=== PATIENT | male | born 1950 | race Caucasian/White ===

== ENCOUNTER 2018-10-27 11:18 | Outpatient (CLI) | payer OTHER, SELFPAY ==
[2018-10-27 13:25] LABS: Anion Gap 8.6 mmol/L (3-11); BUN 21 mg/dL (7-18); CO2 28.4 mmol/L (21.0-32.0); CREATININE 1.15 mg/dL (0.70-1.30); Chloride 103 mmol/L (98-107); Cholesterol 185 mg/dL (50-200); Glucose 93 mg/dL (70-100); HDL Cholesterol 63 mg/dL (40-60); LDL CHOLESTEROL 97 mg/dL (<100); Potassium 4.7 mmol/L (3.5-5.1); Sodium 140 mmol/L (136-145); Triglyceride 146 mg/dL (30-150)
[2018-10-27 13:59] LABS: Uric Acid 8.2 mg/dL (3.5-7.2)
[2018-10-30 08:50] LABS: PSA, Screening 3.3 ng/ml (0-4.5)
[2018-10-30 11:23] LABS: IgA 198 mg/dL (85-499); Interpretation SEE COMMENTS; Tissue Transglutaminase IgA <1.2 U/mL (<4.0)
== END 2018-10-27 11:38 ==
PROVIDERS: PCP Emergency Medicine; Visit Provider Emergency Medicine
DX: I10 Essential (primary) hypertension (principal); Z12.5 Encounter for screening for malignant neoplasm of prostate; K58.0 Irritable bowel syndrome with diarrhea; M10.9 Gout, unspecified; E78.5 Hyperlipidemia, unspecified
CPT/HCPCS: 80048; 80061; 82784; 83516; 83721; 84153; 84550

== ENCOUNTER 2019-05-14 06:59 | Emergency (ER) | payer OTHER, SELFPAY ==
[2019-05-14 07:05] VITALS: BP 155/84; PULSE 67; RESP 14; TEMP 36.4; O2SAT 99
--- NOTE | 2019-05-14 07:05 | DI.RAD_ITS ---
SYMPTOMS/DIAGNOSIS: PAIN, S/P FALL, PAIN OVER LATERAL MALLEOLUS LEFT ANKLE: Three views. There are no priors for comparison. No acute bone, joint or soft tissue abnormality is identified.
--- NOTE | 2019-05-14 07:07 | W.ED.GENAD ---
Discharge Plan Disposition Patient Disposition: HOME Condition: Stable Discharge Details Chief Complaint: Orthopedic Clinical Impression: Left ankle sprain Primary Care Provider: Manolo Eid ED Provider: Alex Paris Home Meds and New Rx's Prescriptions: No Action prednisone 20 mg tablet 40 mg PO DAILY Qty: 8 RF: 3 ibuprofen 800 mg tablet 800 mg PO BID RF: 0 multivitamin 1 EACH capsule 1 tab PO DAILY RF: 0 acetaminophen [Tylenol] 325 MG tablet 325 mg PO Q4H PRN RF: 0 lisinopril 20 MG tablet 20 mg PO DAILY Qty: 90 RF: 3 colchicine 0.6 mg capsule 0.6 mg PO bid prn Qty: 20 RF: 1 bupropion HCl 150 mg tablet extended release 24 hr 150 mg PO QAM Qty: 60 RF: 6 ranitidine HCl [Zantac] 150 mg tablet 150 mg PO BID Qty: 180 RF: 8 fluoxetine 40 mg capsule 40 mg PO DAILY Qty: 90 RF: 3 rosuvastatin [Crestor] 20 mg tablet 20 mg PO DAILY Qty: 90 RF: 3 metoprolol succinate 100 mg tablet extended release 24 hr 100 mg PO DAILY Qty: 90 RF: 3 dextroamphetamine-amphetamine 10 mg tablet 10 mg PO BID MDD 20 mg Qty: 60 RF: 0 Discharge Instructions Instructions: Ankle Sprain (ED) Additional Instructions: if still in pain in one week follow up with your primary care provider for reassessment Medical Decision Making Pt states yesterday he rolled his ankle while walking, did not hit his head or have loc and denies any preceding symptoms to suggest presyncope. Has no pain in the head, c spine, chest or abdomen. He only has pain over the lateral malleolus and has pain with weight bearing and rom . Will xray to eval for fx. Neurovascular exam is intact xray negative on my read, will d/c home and advised if not better in a week to see pcp Differential Diagnosis ankle sprain, fx Imaging Data Radiologic Study: Attestation: I personally reviewed and interpreted this imaging study as follows: Imaging: X-Ray My impression: no acute findings HPI General Mode of arrival: ambulatory. Date/Time Provider Initiated Documentation: 05/14/19 07:00. Limitations to Documentation: no limitations. Information obtained by: patient. History of Present Illness 68 year old M presents to the emergency department with the chief complaint of left ankle pain, described as moderate, Quality is described as aching, and is localized to the left and lower extremity. Patient reports no radiation. Patient started experiencing this day(s) (1) and it has been constant. No relieving factors improve symptom(s), No exacerbating factors reported . Patient notes no other symptoms.. Related Data Home Medications Medication Instructions Recorded Confirmed multivitamin 1 tab PO DAILY 02/16/13 04/06/19 acetaminophen [Tylenol] 325 mg PO Q4H PRN tab-cap 03/01/13 04/06/19 lisinopril 20 mg PO DAILY #90 tab-cap 05/02/18 04/06/19 colchicine 0.6 mg capsule 0.6 mg PO bid prn #20 cap 07/21/18 04/06/19 bupropion HCl 150 mg 24 hr tablet, 150 mg PO QAM #60 tab 11/07/18 04/06/19 extended release prednisone 20 mg tablet 40 mg PO DAILY #8 tab 12/15/18 04/06/19 ranitidine HCl 150 mg tablet 150 mg PO BID #180 tab 01/17/19 04/06/19 ibuprofen 800 mg tablet 800 mg PO BID tab 04/06/19 04/06/19 fluoxetine 40 mg capsule 40 mg PO DAILY #90 tab-cap 04/27/19 rosuvastatin 20 mg tablet 20 mg PO DAILY #90 tab-cap 04/27/19 metoprolol succinate 100 mg 100 mg PO DAILY #90 tab 05/01/19 tablet,extended release 24 hr dextroamphetamine-amphetamine 10 10 mg PO BID #60 tab MDD 20 mg 05/02/19 mg tablet Previous Rx's Medication Instructions Recorded lisinopril 20 mg PO DAILY #90 tab-cap 05/02/18 colchicine 0.6 mg capsule 0.6 mg PO bid prn #20 cap 07/21/18 bupropion HCl 150 mg 24 hr tablet, 150 mg PO QAM #60 tab 11/07/18 extended release prednisone 20 mg tablet 40 mg PO DAILY #8 tab 12/15/18 ranitidine HCl 150 mg tablet 150 mg PO BID #180 tab 01/17/19 fluoxetine 40 mg capsule 40 mg PO DAILY #90 tab-cap 04/27/19 rosuvastatin 20 mg tablet 20 mg PO DAILY #90 tab-cap 04/27/19 metoprolol succinate 100 mg 100 mg PO DAILY #90 tab 05/01/19 tablet,extended release 24 hr dextroamphetamine-amphetamine 10 10 mg PO BID #60 tab MDD 20 mg 05/02/19 mg tablet Allergies Allergy/AdvReac Type Severity Reaction Status Date / Time [id number] Reductase AdvReac Intermediate diarrhea & Verified 04/06/19 09:09 Inhibitor leg cramps General Stated Complaint: Orthopedic SUMI: 4 Review of Systems Review of Systems All systems reviewed & are unremarkable except as noted in HPI and below Constitutional Denies chills, Denies fever(s) and Denies weakness Cardiovascular Denies chest pain and Denies dyspnea Respiratory Denies dyspnea Gastrointestinal Denies abdominal pain and Denies vomiting Neurologic Denies weakness FOR[facility], [facility] Medical History (Updated 04/06/19 @ 09:43 by Manolo Eid DO) Depression Essential hypertension Gout History of colon polyps Hyperlipidemia Surgical History (Updated 04/03/19 @ 08:57 by Vince Green) cardiac cath (~2004) Colonoscopy - IV Sedation (~2006) Colonoscopy - IV Sedation (09/03/16) Replacement of total knee joint Family History Mother Essential hypertension Heart disease Hyperlipidemia Father Substance abuse Diabetes Essential hypertension Heart disease Hyperlipidemia Prostate cancer Depression Sister Essential hypertension Sister Substance abuse Essential hypertension Brother Substance abuse Essential hypertension Hyperlipidemia Asthma Brain cancer Maternal Grandfather Essential hypertension Heart disease Neoplasm Paternal Grandfather Essential hypertension Heart disease Stroke Maternal Grandmother Essential hypertension Heart disease Stroke Paternal Grandmother Diabetes Essential hypertension Heart disease Hyperlipidemia Stroke Son High cholesterol Daughter Depression Substance abuse Social History (Updated 10/30/18 @ 11:46 by Alejandra Coon) Smoking/Tobacco Use Status: Former Tobacco Use Second Hand Exposure: Yes Alcohol Intake: former Drug use: Never Substance use type: does not use, former substance user, marijuana and hallucinogens Caregiver/Support person: No Household members: spouse Housing: house Pets and animals: Yes Pets and animals: cat(s) and dog(s) Sexually active: Yes Do you think of yourself as: straight/heterosexual Current gender identity: male What is your relationship status?: How often do you talk on the phone with friends or family?: twice per week How often do you get together with friends or relatives?: twice per week How often do you attend druze or lutheran services?: 4 or more times per year Do you belong to any clubs or organized social groups?: no Panel score (0-1 are the most socially isolated patients): 3 Duration: 15-30 minutes/day Frequency: 1-2 times per week Kaci/Sabianist: Sabianism Do you feel safe at home: Yes Do you feel safe in your relationship?: Yes Exam Const General: no acute distress Orientation: alert HENMT Head: normal to inspection Ears: external ears normal General nose exam: external nose normal Mouth: moist mucous membranes Eyes General: appearance normal, both eyes and all related structures Neck Neck: normal visual inspection Resp Effort & Inspection: normal respiratory effort and able to speak in complete sentences Cardio Rate: regular rate Skin General skin exam: no rashes or lesions noted Neuro General: alert and oriented x3 Extrem General: normal to inspection Psych Mental Status: mental status grossly normal Course Vital Signs Temperature 36.4 C L 05/14/19 07:05 Pulse 67 05/14/19 07:05 Respiratory Rate 14 05/14/19 07:05 Blood Pressure 155/84 H 05/14/19 07:05 Pulse Oximetry 99 05/14/19 07:05 Temperature 36.4 C L 05/14/19 07:05 Temperature Source Temporal Artery Scan 05/14/19 07:05 Pulse 67 05/14/19 07:05 Respiratory Rate 14 05/14/19 07:05 Blood Pressure 155/84 H 05/14/19 07:05 Blood Pressure Position Sitting 05/14/19 07:05 Pulse Oximetry 99 05/14/19 07:05 Oxygen Delivery Method Room Air 05/14/19 07:05 Oxygen Flow Rate 0 05/14/19 07:05 Pain Level 8 05/14/19 07:05
[2019-05-14] MEDS: Acetaminophen 500 MG TAB 1000 MG PO (07:11)
--- NOTE | 2019-05-14 07:26 | DI.VRAD_ITS ---
EXAM: XR Left Ankle EXAM DATE/TIME: 05/14/2019 7:06 AM CLINICAL HISTORY: 68 years old, male; Injury or trauma; Fall; Initial encounter; Sprain or strain; Ankle; Left TECHNIQUE: Imaging protocol: XR Left ankle. Views: 3 or more views. COMPARISON: No relevant prior studies available. FINDINGS: Bones/joints: Joint spaces and mortise relationships are maintained. No appreciable ankle joint effusion. No acute fracture or dislocation. Soft tissues: No radiopaque foreign body. IMPRESSION: No acute fracture or dislocation. Dictated and Authenticated by: Lanre Martinez MD. Ordering:TRAN Johnson MD
== END 2019-05-14 07:46 | disposition home or self-care (01) ==
PROVIDERS: Emergency Provider Emergency Medicine; PCP Emergency Medicine
DX: S93.401A Sprain of unspecified ligament of right ankle, initial encounter (principal); X50.9XXA Other and unspecified overexertion or strenuous movements or postures, initial encounter; I10 Essential (primary) hypertension
CPT/HCPCS: 99283; 73610; E0114

== ENCOUNTER 2019-07-18 08:56 | Outpatient (CLI) | payer OTHER, SELFPAY ==
[2019-07-19 11:20] LABS: PSA, Diagnostic 4.7 ng/ml (0-4.5)
== END 2019-07-18 09:16 ==
PROVIDERS: PCP Emergency Medicine; Visit Provider Emergency Medicine
DX: C61 Malignant neoplasm of prostate (principal); N13.8 Other obstructive and reflux uropathy; N40.1 Benign prostatic hyperplasia with lower urinary tract symptoms
CPT/HCPCS: 36415; 84153

== ENCOUNTER → 2019-08-08 08:18 | Outpatient (BNVA) | payer OTHER, SELFPAY | PROVIDERS: PCP Emergency Medicine; Referring Provider Emergency Medicine; Visit Provider Nurse Practitioner Gerontology | DX: N40.1 Benign prostatic hyperplasia with lower urinary tract symptoms (principal); Z80.42 Family history of malignant neoplasm of prostate; R97.20 Elevated prostate specific antigen [PSA]; I10 Essential (primary) hypertension | CPT/HCPCS: 99203; 99214 ==

== ENCOUNTER 2019-11-14 00:55 | Outpatient (CLI) | payer OTHER, SELFPAY ==
[2019-11-14 10:50] LABS: ALT 41 U/L (16-63); AST 20 U/L (15-37); Alkaline Phosphatase 112 U/L (46-116); Bilirubin, Direct 0.11 mg/dL (0.00-0.20); Bilirubin, Total 0.5 mg/dL (0.2-1.0); Total Protein 6.5 g/dL (6.4-8.2); Uric Acid 3.8 mg/dL (3.5-7.2)
== END 2019-11-14 01:15 ==
PROVIDERS: PCP Emergency Medicine; Visit Provider Emergency Medicine
DX: M10.9 Gout, unspecified (principal)
CPT/HCPCS: 36415; 80076; 84550

== ENCOUNTER 2020-02-16 11:48 | Emergency (ER) | payer OTHER, SELFPAY ==
[2020-02-16] VITALS (12 sets, daily range): BP systolic 114–139; BP diastolic 73–90; PULSE 62–74; RESP 16; TEMP 36.3–36.8; O2SAT 94–98
--- NOTE | 2020-02-16 12:00 | DI.RAD_ITS ---
EXAM: XR TIB/FIB RT. RT ANKLE AND POST REDUCTION RT ANKLE CLINICAL HISTORY: s/p fall, r/o acute fracture COMPARISON: XR ANKLE RT COMPLETE from 02/16/2020 XR TIB/FIB RT from 02/16/2020 XR ANKLE RT COMPLETE from 02/16/2020 FINDINGS: Two views of the leg were obtained and show knee joint replacement in position. There is a mildly co mminuted fracture of the proximal fibular diaphyseal metaphyseal junction. Three initial views of the right ankle show fracture dislocation with disruption of the tibiotalar dasia int, probable posterior and medial malleolar fractures, and possible talar injuries laterally and ant eriorly with small fragments of ossific or calcific material noted at these sites. Follow-up radiographs show reduction of the fracture dislocation with the ankle in a splint. Additio nal evaluation with CT may be considered to further characterize the tibiotalar injury.
--- NOTE | 2020-02-16 12:00 | DI.CT_ITS ---
EXAM: CT CHEST/ABD/PEL WO CLINICAL HISTORY: s/p fall, r/o R rib/R hip fracture COMPARISON: No exams were available for comparison FINDINGS: CT examination of the chest, abdomen and pelvis was performed without contrast administration. No fr acture of the bony thorax identified. Tracheobronchial tree appears intact. Lungs are predominantly clear with an incidental well-circumscribed 5 millimeter right lower lobe intrapulmonary nodule, 12 month follow-up chest CT suggested. Vascular structures cannot be evaluated due to lack of contrast material, no gross mediastinal hematoma, mass, or adenopathy. No pleural effusion or pneumothorax. Note is made of hepatic steatosis. Otherwise unremarkable appearance of liver, spleen, and pancreas by noncontrast criteria. Adrenals and kidneys appear normal by noncontrast criteria. No urinary tra ct obstruction or calcification. Abdominal aorta is of normal diameter. No intra-abdominal hematoma or free air. No focal evidence of bowel injury or obstruction. Normal appearance of appendix. No evidence of diverticulitis. No significant abdominal wall hernia or hematoma. No fracture seen involving the lumbosacral spine, pelvis, or hips. IMPRESSION: No evidence of acute injury. Examination limited by lack of contrast material. Incidental [address] right lower lobe intrapulmonary nodule, 12 month follow-up chest CT suggested.
--- NOTE | 2020-02-16 12:00 | DI.RAD_ITS ---
EXAM: XR SHOULDER RT COMPLETE 2+V CLINICAL HISTORY: s/p fall, r/o acute fracture TECHNIQUE: COMPARISON: No exams were available for comparison FINDINGS: Five views were obtained. Note is made of calcification the soft tissues medial to the scapula which was seen to lie at the base of the coracoid on recent CT.. No evidence of acute fracture or disloca tion. IMPRESSION:
--- NOTE | 2020-02-16 12:07 | W.ED.GENAD ---
Discharge Plan Disposition Patient Disposition: HOME Condition: Stable Discharge Details Chief Complaint: Trauma Clinical Impression: Fracture dislocation of ankle joint, Abrasion of ankle, right, Fracture of proximal end of fibula, Contusion of right shoulder, Abrasion of hip, right, Fall from roof Primary Care Provider: Manolo Eid ED Provider: Diana Alonso Home Meds and New Rx's Prescriptions: New oxycodone 5 mg tablet 5 mg PO Q6H PRN (Reason: pain) Qty: 14 RF: 0 Continued tamsulosin [Flomax] 0.4 mg capsule 0.4 mg PO QHS Qty: 90 RF: 3 ibuprofen 800 mg tablet 800 mg PO BID RF: 0 famotidine 20 mg tablet 20 mg PO BID Qty: 180 RF: 2 famotidine 20 mg tablet 20 mg PO BID Qty: 180 RF: 2 multivitamin 1 EACH capsule 1 tab PO DAILY RF: 0 acetaminophen [Tylenol] 325 MG tablet 325 mg PO Q4H PRN RF: 0 ranitidine HCl [Zantac] 150 mg tablet 150 mg PO BID Qty: 180 RF: 8 fluoxetine 40 mg capsule 40 mg PO DAILY Qty: 90 RF: 3 rosuvastatin [Crestor] 20 mg tablet 20 mg PO DAILY Qty: 90 RF: 3 metoprolol succinate 100 mg tablet extended release 24 hr 100 mg PO DAILY Qty: 90 RF: 3 colchicine 0.6 mg capsule 0.6 mg PO bid prn Qty: 60 RF: 6 prednisone 20 mg tablet 40 mg PO DAILY Qty: 10 RF: 0 bupropion HCl 150 mg tablet extended release 24 hr 150 mg PO QAM Qty: 60 RF: 6 allopurinol 100 mg tablet 300 mg PO DAILY Qty: 270 RF: 3 dextroamphetamine-amphetamine 10 mg tablet 10 mg PO BID MDD 20 mg Qty: 60 RF: 0 valacyclovir 1 gram tablet 1,000 mg PO Q8H Qty: 21 RF: 0 lisinopril 10 mg tablet 10 mg PO DAILY Qty: 30 RF: 0 Discharge Instructions Instructions: Leg Fracture (ED), Contusion in Adults (ED), Abrasion (ED) Additional Instructions: Alternate tylenol and motrin as needed and directed for pain. Take the oxycodone as needed and directed for pain not relieved with Tylenol or Motrin. Take the antibiotics as directed today. Be sure to rest, ice, elevate your right leg as much as possible. Do not bear any weight on your right leg. Use your crutches for ambulation. Do not eat anything after midnight on Tuesday. Call the orthopedics office on Tuesday at 9 AM to discuss plans for surgery of your ankle. Return to the emergency department if you develop any worsening or new concerning symptoms. Referrals: Kameron Garcia MD [ [facility] STAFF PHYSICIAN] - Nael Durham MD [ [facility] STAFF PHYSICIAN] - Discharge Data Discharge Date/Time-TO BE ENTERED AT DEPARTURE: 02/16/20 14:02 Discharge Physician: Diana Alonso Medical Decision Making 1140 -- 69-year-old male who presents with right ankle, shoulder, hip pain after fall down 10 feet off of roof onto wooden deck prior to arrival. There is right ankle medial malleolus bony prominence and superficial abrasion consistent with mild deformity. He is neurovascular intact. He also has superficial abrasions noted to right anterior lateral chest as well as right lateral hip. He has pain with range of motion in his right shoulder. No report or evidence of head injury. No midline spinal tenderness. Lungs clear and abdomen soft and nontender. We will give a dose of morphine and refer for right shoulder, right tib-fib and right ankle x-rays as well as CT chest abdomen and pelvis without contrast. 1300 --imaging reviewed. There is a fracture dislocation of the tibiotalar joint with medial anterior dislocation of the right tibia as well as proximal fibular fracture concerning for syndesmotic injury. Right shoulder xray negative. CT chest and abdomen negative for acute findings. There was noted a 5mm R LL nodule which pt was notified about and advised to f/u with pcp if needed. Case discussed with Dr. Garcia who stated that patient will need internal fixation of ankle. Reduction was performed at bedside after 200 mcg of fentanyl. Patient tolerated procedure well and splint placed. Neurovascularly intact pre-and post reduction. X-ray confirmed successful reduction. Patient was advised to call orthopedics office on Tuesday at 9 AM and with plan for nothing by mouth after midnight on Tuesday for tentative plans for operative fixation on Tuesday. Patient was advised on RICE and no weight bearing. He has crutches. Usual and customary return precautions given prior to discharge. Medical Records Medical records reviewed: Yes I reviewed the patient's medical records. Imaging Data Radiologic Study: Radiologist's impression: CT Chest Without Contrast Exam date and time: 02/16/2020 12:04 PM Age: 69 years old Clinical indication: Injury or trauma; Fall; Initial encounter; Generalized; Blunt trauma (contusions or hematomas) TECHNIQUE: Imaging protocol: Computed tomography of the chest without contrast. COMPARISON: No relevant prior studies available. FINDINGS: Lungs: 5 mm right lower lobe solid pulmonary nodule (series 4, image 386). No consolidation. No masses. Scattered atelectasis and/or scarring of the lung bases. Pleural space: No pneumothorax. No pleural effusion. Heart: There is mild atherosclerotic calcification of the coronary arteries. No cardiomegaly. No pericardial effusion. Aorta: Unremarkable. No aortic aneurysm. Lymph nodes: Unremarkable. No enlarged lymph nodes. Bones/joints: Unremarkable. No acute fracture. Soft tissues: Unremarkable. IMPRESSION: 1. No acute findings. 2. 5 mm right lower lobe solid pulmonary nodule. For patients at low risk (minimal or absent history of smoking and of other known risk factors), no routine follow-up is indicated. For patients at high risk (history of smoking or of other known risk factors), consider optional CT at 12 months. (Sami, et al., Fleischner Society, 2017). CT Abdomen And Pelvis Without Contrast Exam date and time: 02/16/2020 12:04 PM Age: 69 years old Clinical indication: Injury or trauma; Fall; Initial encounter; Generalized; Blunt trauma (contusions or hematomas) TECHNIQUE: Imaging protocol: Computed tomography of the abdomen and pelvis without contrast. COMPARISON: No relevant prior studies available. FINDINGS: Liver: There is a diffuse decrease in hepatic parenchymal density, consistent with fatty infiltration. There is no evidence of a focal mass. Gallbladder and bile ducts: Unremarkable. No calcified stones. No ductal dilation. Pancreas: Unremarkable. No ductal dilation. Spleen: Unremarkable. No splenomegaly. Adrenals: Unremarkable. No mass. Kidneys and ureters: Unremarkable. No hydronephrosis. Stomach and bowel: Unremarkable. No obstruction. No mucosal thickening. Appendix: No evidence of appendicitis. Intraperitoneal space: Unremarkable. No free air. No significant fluid collection. Vasculature: Unremarkable. No abdominal aortic aneurysm. Lymph nodes: Unremarkable. No enlarged lymph nodes. Bladder: Unremarkable as visualized. Reproductive: Unremarkable as visualized. Bones/joints: No acute fracture. Soft tissues: Tiny fat containing umbilical hernia. IMPRESSION: 1. No acute findings. 2. Hepatic steatosis. XR Right Shoulder Exam date and time: 02/16/2020 12:27 PM Age: 69 years old Clinical indication: Pain; Shoulder; Right; Patient HX: Fall 10 ft TECHNIQUE: Imaging protocol: XR Right shoulder. Views: 2 or more views. COMPARISON: No relevant prior studies available. FINDINGS: No acute fracture. No dislocation. Mild degenerative changes of the glenohumeral joint. Mild degenerative changes of the acromioclavicular joint. Calcification projecting over the scapula is better seen on CT performed 02/16/2020 and is within the soft tissues. IMPRESSION: No acute findings. XR Right Tibia and Fibula Exam date and time: 02/16/2020 12:23 PM Age: 69 years old Clinical indication: Injury or trauma; Fall; Initial encounter; Blunt trauma; Lower leg; Right TECHNIQUE: Imaging protocol: XR Right tibia and fibula. Views: 2 views. COMPARISON: COMPARISON MORE: CR - XR ANKLE RT COMPLETE 02/16/2020 12:23:15 PM FINDINGS: Comminuted spiral fracture of the proximal right fibula with minimal displacement. Redemonstrated and partially visualized fracture dislocation of the right tibiotalar joint as better described on dedicated radiographs performed concurrently. IMPRESSION: Comminuted spiral fracture of the proximal right fibula with minimal displacement and associated partially visualized fracture dislocation of the right tibiotalar joint consistent with syndesmotic injury. XR Right Ankle Exam date and time: 02/16/2020 12:23 PM Age: 69 years old Clinical indication: Injury or trauma; Fall; Initial encounter; Blunt trauma; Lower leg; Right TECHNIQUE: Imaging protocol: XR Right ankle. Views: 3 or more views. COMPARISON: No relevant prior studies available. FINDINGS: Bones/joints: There is fracture dislocation of the ankle joint. The tibia is dislocated medially and anteriorly in relation to the talus. There is likely fracture of the the posterior malleolus of the tibia. Well corticated ossified fragment inferior to the distal fibula likely represents old injury. Ankle joint effusion. Soft tissues: No significant medial or lateral soft tissue swelling. IMPRESSION: Fracture dislocation of the tibiotalar joint with medial and anterior dislocation of the tibia. Highly suspicious for syndesmotic injury and recommend radiographs of the proximal tibia and fibula/knee. Additionally, CT of the ankle may be of benefit to define fractures not well visualized by radiograph. XR Right Ankle - POST REDUCTION Exam date and time: 02/16/2020 1:24 PM Age: 69 years old Clinical indication: Other: Post reduction, S/P fall TECHNIQUE: Imaging protocol: XR Right ankle. Views: 3 or more views. COMPARISON: CR XR ANKLE RT COMPLETE 02/16/2020 12:23 PM FINDINGS: Interval reduction of right ankle tibiotalar dislocation now in near anatomical alignment. The ankle mortise appears near symmetric. Minimally displaced fracture fragment adjacent to the posterior talus. No other fractures are visualized. Small ankle joint effusion. Overlying cast material may obscure fine osseous detail. IMPRESSION: As above. HPI General Mode of arrival: EMS. Date/Time Provider Initiated Documentation: 02/16/20 11:54. Limitations to Documentation: no limitations. Information obtained by: patient. HPI Narrative: Pt is a 69yo M who presents with right shoulder, right hip and right ankle pain after fall off of roof prior to arrival. Patient states he was installing a weather station on his roof when he lost his balance and slipped falling down approximately 10 feet onto his wooden deck. He denies any head injury, LOC, chest pain, shortness of breath, neck pain, back pain or abdominal pain. He states he think he fell onto his right ankle which is his main area of pain. He is also complaining of pain in his right shoulder and right hip. He was given 100 mcg of fentanyl and 4 mg of Zofran by EMS with some relief. Related Data Home Medications Medication Instructions Recorded Confirmed multivitamin 1 tab PO DAILY 02/16/13 02/08/20 acetaminophen [Tylenol] 325 mg PO Q4H PRN tab-cap 03/01/13 02/08/20 ranitidine HCl 150 mg tablet 150 mg PO BID #180 tab 01/17/19 02/08/20 ibuprofen 800 mg tablet 800 mg PO BID tab 04/06/19 02/08/20 fluoxetine 40 mg capsule 40 mg PO DAILY #90 tab-cap 04/27/19 02/08/20 rosuvastatin 20 mg tablet 20 mg PO DAILY #90 tab-cap 04/27/19 02/08/20 metoprolol succinate 100 mg 100 mg PO DAILY #90 tab 07/17/19 02/08/20 tablet,extended release 24 hr tamsulosin 0.4 mg capsule 0.4 mg PO QHS #90 cap 07/18/19 02/08/20 colchicine 0.6 mg capsule 0.6 mg PO bid prn #60 cap 09/21/19 02/08/20 prednisone 20 mg tablet 40 mg PO DAILY #10 tab 09/21/19 02/08/20 famotidine 20 mg tablet 20 mg PO BID #180 tab 10/02/19 02/08/20 famotidine 20 mg tablet 20 mg PO BID #180 tab 10/02/19 02/08/20 allopurinol 100 mg tablet 300 mg PO DAILY #270 tab 11/09/19 02/08/20 bupropion HCl 150 mg 24 hr tablet, 150 mg PO QAM #60 tab 11/09/19 02/08/20 extended release dextroamphetamine-amphetamine 10 10 mg PO BID #60 tab MDD 20 mg 01/15/20 02/08/20 mg tablet valacyclovir 1 gram tablet 1,000 mg PO Q8H #21 tab 02/11/20 lisinopril 10 mg tablet 10 mg PO DAILY #30 tab 02/12/20 oxycodone 5 mg PO Q6H PRN #14 tab 02/16/20 Previous Rx's Medication Instructions Recorded ranitidine HCl 150 mg tablet 150 mg PO BID #180 tab 01/17/19 fluoxetine 40 mg capsule 40 mg PO DAILY #90 tab-cap 04/27/19 rosuvastatin 20 mg tablet 20 mg PO DAILY #90 tab-cap 04/27/19 metoprolol succinate 100 mg 100 mg PO DAILY #90 tab 07/17/19 tablet,extended release 24 hr tamsulosin 0.4 mg capsule 0.4 mg PO QHS #90 cap 07/18/19 colchicine 0.6 mg capsule 0.6 mg PO bid prn #60 cap 09/21/19 prednisone 20 mg tablet 40 mg PO DAILY #10 tab 09/21/19 famotidine 20 mg tablet 20 mg PO BID #180 tab 10/02/19 famotidine 20 mg tablet 20 mg PO BID #180 tab 10/02/19 allopurinol 100 mg tablet 300 mg PO DAILY #270 tab 11/09/19 bupropion HCl 150 mg 24 hr tablet, 150 mg PO QAM #60 tab 11/09/19 extended release dextroamphetamine-amphetamine 10 10 mg PO BID #60 tab MDD 20 mg 01/14/ mg tablet valacyclovir 1 gram tablet 1,000 mg PO Q8H #21 tab 02/11/20 lisinopril 10 mg tablet 10 mg PO DAILY #30 tab 02/12/20 oxycodone 5 mg PO Q6H PRN #14 tab 02/16/20 Allergies Allergy/AdvReac Type Severity Reaction Status Date / Time [id number]-[id number]-Rnl Reductase AdvReac Intermediate diarrhea & Verified 02/08/20 13:10 Inhibitor leg cramps General Stated Complaint: Trauma SUMI: 3 Review of Systems All systems reviewed & are unremarkable except as noted in HPI and below Constitutional Constitutional: Reports as per HPI, Denies chills and Denies fever(s) Eyes Eyes: Denies blurry vision ENT Ears, Nose, Mouth, and Throat: Denies dizziness, Denies sore throat and Denies throat swelling Cardiovascular Cardiovascular: Denies chest pain and Denies dyspnea Respiratory Respiratory: Denies cough and Denies dyspnea Gastrointestinal Gastrointestinal: Denies abdominal pain, Denies diarrhea and Denies vomiting Genitourinary Genitourinary: Denies hematuria and Denies dysuria Musculoskeletal Musculoskeletal: Denies back pain and Denies numbness Integumentary/Breasts Skin/Breast: Denies lesions and Denies rash Neurologic Neurologic: Denies dizziness, Denies localized weakness and Denies numbness Allergic/Immunologic Allergic/Immunologic: Denies throat swelling [facility] Medical History (Updated 02/16/20 @ 13:22 by Diana Alonso DO) Depression Essential hypertension Gout History of colon polyps History of tobacco use (Inactive) Hyperlipidemia Surgical History (Updated 02/08/20 @ 13:03 by Dia Guerra NP) cardiac cath (~2004) left Colonoscopy - IV Sedation (~2006) Colonoscopy - IV Sedation (09/03/16) Replacement of total knee joint 2008 BILATERAL 2009 REV RIGHT Status post cardiac catheterization (Inactive) Status post total bilateral knee replacement (Inactive) Family History Mother , 82 Essential hypertension Heart disease Hyperlipidemia Father , 81 Substance abuse Diabetes Essential hypertension Heart disease Hyperlipidemia Prostate cancer Depression Sister Essential hypertension Sister Substance abuse Essential hypertension Brother Substance abuse Essential hypertension Hyperlipidemia Asthma Brain cancer Maternal Grandfather , 83 Essential hypertension Heart disease Neoplasm COLON Paternal Grandfather , 84 Essential hypertension Heart disease Stroke Maternal Grandmother , 84 Essential hypertension Heart disease Stroke Paternal Grandmother , 80 Diabetes Essential hypertension Heart disease Hyperlipidemia Stroke Son High cholesterol Daughter Depression Substance abuse Social History (Updated 10/30/18 @ 11:46 by Alejandra Coon) Smoking/Tobacco Use Status: Former Tobacco Use Second Hand Exposure: Yes Alcohol Intake: former Drug use: Never Substance use type: does not use, former substance user, marijuana and hallucinogens Caregiver/Support person: No Household members: spouse Housing: house Pets and animals: Yes Pets and animals: cat(s) and dog(s) Sexually active: Yes Do you think of yourself as: straight/heterosexual Current gender identity: male What is your relationship status?: How often do you talk on the phone with friends or family?: twice per week How often do you get together with friends or relatives?: twice per week How often do you attend baptist or jehovah's witness services?: 4 or more times per year Do you belong to any clubs or organized social groups?: no Panel score (0-1 are the most socially isolated patients): 3 Duration: 15-30 minutes/day Frequency: 1-2 times per week Kaci/Spiritism: Druze Do you feel safe at home: Yes Do you feel safe in your relationship?: Yes Exam Const General: cooperative and healthy appearing Orientation: alert and awake HENIA Head: normal to inspection, no palpable skull fracture, normocephalic and atraumatic Ears: hearing grossly normal bilaterally, external ears normal and TM's normal bilaterally General nose exam: external nose normal Face and sinus: normal facial exam Mouth: oral mucosae normal Teeth and gingiva: dentition normal Throat: posterior oropharynx normal Eyes General: appearance normal, both eyes and all related structures Eyelids: eyelids normal Pupils: PERRL EOM: EOM intact bilaterally Neck Neck: normal visual inspection Lymphatic: no lymphadenopathy noted Chest Chest: normal inspection of the chest Chest/axillae images: 1. Superficial linear abrasions and minimal tenderness noted on R side of chest. No crepitus, erythema, edema, ecchymoses noted to chest. Resp Effort & Inspection: normal respiratory effort and able to speak in complete sentences Auscultation: clear to auscultation bilaterally Cardio Rate: regular rate Rhythm: regular rhythm GI Inspection: normal to inspection Palpation: soft, not firm, no guarding, no hepatosplenomegaly, no masses and nontender Auscultation: normal bowel sounds Back/Spine/Pelvis Back: no CVA tenderness Skin General skin exam: no rashes or lesions noted Neuro General: patient alert and patient awake Cognition: normal cognition Speech: speech normal Gait: normal gait Motor: muscle tone normal throughout Sensory Exam: no sensory deficits noted Other: Motor/sensory grossly intact right foot. Extrem Right upper extremity: normal capillary refill and shoulder/upper arm Details: tenderness Location: of the A-C joint and abnormal ROM Details: pain with active ROM Details: in ADduction, in ABduction and in internal rotation Left upper extremity: normal to inspection, full ROM and normal capillary refill Right lower extremity: hip/thigh Details: normal ROM and knee Details: abrasion (Right anterior) Upper/lower leg/hip images: 1. 1 cm x 5 cm linear abrasion noted to right lateral hip. Ankle/foot/toe images: 1. 2 x 2 centimeter superficial abrasion and bony prominence noted to right medial malleolus. Significant tenderness to palpation of this area. Muscle around the area appears tight and is spasm. Other: Bilateral upper and lower extremity distal pulses intact. Psych Appearance: grossly normal Mental Status: mental status grossly normal Speech and Movement: speech and movement normal Affect: normal affect Thought Process: normal Course Vital Signs Vital signs: Vital Signs Temperature 97.3 F L 02/16/20 11:47 Pulse 74 02/16/20 11:47 Respiratory Rate 16 02/16/20 11:47 Blood Pressure 129/90 02/16/20 11:47 Pulse Oximetry 94 L 02/16/20 11:47 Temperature 97.3 F L 02/16/20 11:47 Temperature Source Tympanic 02/16/20 11:47 Pulse 74 02/16/20 11:47 Respiratory Rate 16 02/16/20 11:47 Respiratory Effort Non-Labored 02/16/20 11:50 Respiratory Depth Normal 02/16/20 11:50 Respiratory Pattern Normal 02/16/20 11:50 Blood Pressure 129/90 02/16/20 11:47 Blood Pressure Position Sitting 02/16/20 11:47 Pulse Oximetry 94 L 02/16/20 11:47 Oxygen Delivery Method Room Air 02/16/20 11:47 Oxygen Flow Rate 0 02/16/20 11:47 Pain Level 8 02/16/20 12:00 Procedures Orthopedic Fracture Reduction Fracture #1: Time Out Performed: Yes Side: right Fracture Reduction Location: tibia Analgesia: other (200mcg fentanyl) Technique: other (lifting up leg by pulling up and inverting toes) Post Reduction X-rays Demonstrate: anatomical reduction Post-reduction neuro exam: intact Post-reduction vascular exam: intact Splint Applied: Yes Patient Tolerated Procedure: well
[2020-02-16] MEDS: fentaNYL 100 MCG/2 ML VIAL IVP ×2 (12:51→13:03)
[2020-02-16] MEDS: Ondansetron 4 MG/2 ML VIAL IVP (12:51)
--- NOTE | 2020-02-16 13:04 | DI.VRAD_ITS ---
PROCEDURE INFORMATION: Exam: XR Right Shoulder Exam date and time: 02/16/2020 12:27 PM Age: 69 years old Clinical indication: Pain; Shoulder; Right; Patient HX: Fall 10 ft TECHNIQUE: Imaging protocol: XR Right shoulder. Views: 2 or more views. COMPARISON: No relevant prior studies available. FINDINGS: No acute fracture. No dislocation. Mild degenerative changes of the glenohumeral joint. Mild degenerative changes of the acromioclavicular joint. Calcification projecting over the scapula is better seen on CT performed 02/16/2020 and is within the soft tissues. IMPRESSION: No acute findings. Dictated and Authenticated by: Matias Maciel MD. Ordering:HAWK Ortiz MD
--- NOTE | 2020-02-16 13:11 | DI.VRAD_ITS ---
PROCEDURE INFORMATION: Exam: CT Chest Without Contrast Exam date and time: 02/16/2020 12:04 PM Age: 69 years old Clinical indication: Injury or trauma; Fall; Initial encounter; Generalized; Blunt trauma (contusions or hematomas) TECHNIQUE: Imaging protocol: Computed tomography of the chest without contrast. COMPARISON: No relevant prior studies available. FINDINGS: Lungs: 5 mm right lower lobe solid pulmonary nodule (series 4, image 386). No consolidation. No masses. Scattered atelectasis and/or scarring of the lung bases. Pleural space: No pneumothorax. No pleural effusion. Heart: There is mild atherosclerotic calcification of the coronary arteries. No cardiomegaly. No pericardial effusion. Aorta: Unremarkable. No aortic aneurysm. Lymph nodes: Unremarkable. No enlarged lymph nodes. Bones/joints: Unremarkable. No acute fracture. Soft tissues: Unremarkable. IMPRESSION: 1. No acute findings. 2. 5 mm right lower lobe solid pulmonary nodule. For patients at low risk (minimal or absent history of smoking and of other known risk factors), no routine follow-up is indicated. For patients at high risk (history of smoking or of other known risk factors), consider optional CT at 12 months. (Sami et al., Fleischner Society, 2017). PROCEDURE INFORMATION: Exam: CT Abdomen And Pelvis Without Contrast Exam date and time: 02/16/2020 12:04 PM Age: 69 years old Clinical indication: Injury or trauma; Fall; Initial encounter; Generalized; Blunt trauma (contusions or hematomas) TECHNIQUE: Imaging protocol: Computed tomography of the abdomen and pelvis without contrast. COMPARISON: No relevant prior studies available. FINDINGS: Liver: There is a diffuse decrease in hepatic parenchymal density, consistent with fatty infiltration. There is no evidence of a focal mass. Gallbladder and bile ducts: Unremarkable. No calcified stones. No ductal dilation. Pancreas: Unremarkable. No ductal dilation. Spleen: Unremarkable. No splenomegaly. Adrenals: Unremarkable. No mass. Kidneys and ureters: Unremarkable. No hydronephrosis. Stomach and bowel: Unremarkable. No obstruction. No mucosal thickening. Appendix: No evidence of appendicitis. Intraperitoneal space: Unremarkable. No free air. No significant fluid collection. Vasculature: Unremarkable. No abdominal aortic aneurysm. Lymph nodes: Unremarkable. No enlarged lymph nodes. Bladder: Unremarkable as visualized. Reproductive: Unremarkable as visualized. Bones/joints: No acute fracture. Soft tissues: Tiny fat containing umbilical hernia. IMPRESSION: 1. No acute findings. 2. Hepatic steatosis. Dictated and Authenticated by: Matias Maciel MD. Ordering:HAWK Ortiz MD
--- NOTE | 2020-02-16 13:16 | DI.VRAD_ITS ---
PROCEDURE INFORMATION: Exam: XR Right Ankle Exam date and time: 02/16/2020 12:23 PM Age: 69 years old Clinical indication: Injury or trauma; Fall; Initial encounter; Blunt trauma; Lower leg; Right TECHNIQUE: Imaging protocol: XR Right ankle. Views: 3 or more views. COMPARISON: No relevant prior studies available. FINDINGS: Bones/joints: There is fracture dislocation of the ankle joint. The tibia is dislocated medially and anteriorly in relation to the talus. There is likely fracture of the the posterior malleolus of the tibia. Well corticated ossified fragment inferior to the distal fibula likely represents old injury. Ankle joint effusion. Soft tissues: No significant medial or lateral soft tissue swelling. IMPRESSION: Fracture dislocation of the tibiotalar joint with medial and anterior dislocation of the tibia. Highly suspicious for syndesmotic injury and recommend radiographs of the proximal tibia and fibula/knee. Additionally, CT of the ankle may be of benefit to define fractures not well visualized by radiograph. Dictated and Authenticated by: Matias Maciel MD. Ordering:HAWK Ortiz MD
--- NOTE | 2020-02-16 13:19 | DI.VRAD_ITS ---
PROCEDURE INFORMATION: Exam: XR Right Tibia and Fibula Exam date and time: 02/16/2020 12:23 PM Age: 69 years old Clinical indication: Injury or trauma; Fall; Initial encounter; Blunt trauma; Lower leg; Right TECHNIQUE: Imaging protocol: XR Right tibia and fibula. Views: 2 views. COMPARISON: COMPARISON MORE: CR - XR ANKLE RT COMPLETE 02/16/2020 12:23:15 PM FINDINGS: Comminuted spiral fracture of the proximal right fibula with minimal displacement. Redemonstrated and partially visualized fracture dislocation of the right tibiotalar joint as better described on dedicated radiographs performed concurrently. IMPRESSION: Comminuted spiral fracture of the proximal right fibula with minimal displacement and associated partially visualized fracture dislocation of the right tibiotalar joint consistent with syndesmotic injury. Dictated and Authenticated by: Matias Maciel MD. Ordering:HAWK Ortiz MD
--- NOTE | 2020-02-16 13:46 | DI.VRAD_ITS ---
PROCEDURE INFORMATION: Exam: XR Right Ankle Exam date and time: 02/16/2020 1:24 PM Age: 69 years old Clinical indication: Other: Post reduction, S/P fall TECHNIQUE: Imaging protocol: XR Right ankle. Views: 3 or more views. COMPARISON: CR XR ANKLE RT COMPLETE 02/16/2020 12:23 PM FINDINGS: Interval reduction of right ankle tibiotalar dislocation now in near anatomical alignment. The ankle mortise appears near symmetric. Minimally displaced fracture fragment adjacent to the posterior talus. No other fractures are visualized. Small ankle joint effusion. Overlying cast material may obscure fine osseous detail. IMPRESSION: As above. Dictated and Authenticated by: Matias Maciel MD. Ordering:HAWK Ortiz MD
[2020-02-16] MEDS: oxyCODONE 5 MG TAB PO (13:57)
--- NOTE | 2020-02-16 14:03 | NUR.NOTE ---
Nursing Note: PT DC at 1403. At the time of DC the PT was alert and oriented, vitals stable. will be driving the PT home.
== END 2020-02-16 14:02 | disposition home or self-care (01) ==
PROVIDERS: Emergency Provider Physician Assistant; PCP Emergency Medicine
DX: S82.891A Other fracture of right lower leg, initial encounter for closed fracture (principal); S82.831A Other fracture of upper and lower end of right fibula, initial encounter for closed fracture; S90.511A Abrasion, right ankle, initial encounter; S40.011A Contusion of right shoulder, initial encounter; S70.211A Abrasion, right hip, initial encounter; W13.2XXA Fall from, out of or through roof, initial encounter; R91.8 Other nonspecific abnormal finding of lung field; I10 Essential (primary) hypertension
CPT/HCPCS: 29515; 71250; 96374; 96375; 99285; 73030; 73590; 73610; 74176; J2405; J3010

== ENCOUNTER 2020-02-18 07:16 | Day surgery (SDC) | payer OTHER, SELFPAY ==
[2020-02-18 10:50] VITALS: BP 102/66; PULSE 70; RESP 17; TEMP 36.5; O2SAT 98
[2020-02-18] MEDS: Lactated Ringers 1,000 ML 80 ML IV (11:30)
[2020-02-18] MEDS: ceFAZolin 2 GM/50 ML BAG IVPB (13:17)
--- NOTE | 2020-02-18 14:32 | DI.RAD_ITS ---
EXAM: XR ANKLE RT 2V CLINICAL HISTORY: TRIMALLEOLAR FRACTURE EQUIVALENT RIGHT ANKLE. TECHNIQUE: 2D and realtime digital imaging were provided in the OR. COMPARISON: XR TIB/FIB RT from 02/16/2020 XR ANKLE RT COMPLETE from 02/16/2020 FINDINGS: Hard copy images show placement of 2 mortise screws and a metallic anchor near the medial malleolus. The proximal fibular fracture alignment appears satisfactory. A knee prosthesis is again noted. Pl ease see procedure note for details. Fluoro Time: 32.7 seconds RADIATION DOSE DELIVERED:
--- NOTE | 2020-02-18 14:53 | W.PM.DSUDISC ---
Discharge Plan Disposition Patient Disposition: HOME Condition: Good Discharge Details Reason For Visit: ORIF OF TRIMALLEOLAR FX R ANKLE Attending Provider: Kameron Garcia Primary Care Provider: Manolo Eid Home Meds and New Rx's Prescriptions: New ibuprofen 800 mg tablet 800 mg PO TID Qty: 30 RF: 1 hydrocodone-acetaminophen 5-325 mg tablet 1 tab PO Q6H PRN (Reason: pain) Qty: 14 RF: 0 No Action tamsulosin [Flomax] 0.4 mg capsule 0.4 mg PO QHS Qty: 90 RF: 3 ibuprofen 800 mg tablet 800 mg PO BID RF: 0 famotidine 20 mg tablet 20 mg PO BID Qty: 180 RF: 2 multivitamin 1 EACH capsule 1 tab PO DAILY RF: 0 acetaminophen [Tylenol] 325 MG tablet 325 mg PO Q4H PRN RF: 0 fluoxetine 40 mg capsule 40 mg PO DAILY Qty: 90 RF: 3 rosuvastatin [Crestor] 20 mg tablet 20 mg PO DAILY Qty: 90 RF: 3 metoprolol succinate 100 mg tablet extended release 24 hr 100 mg PO DAILY Qty: 90 RF: 3 colchicine 0.6 mg capsule 0.6 mg PO bid prn Qty: 60 RF: 6 bupropion HCl 150 mg tablet extended release 24 hr 150 mg PO QAM Qty: 60 RF: 6 allopurinol 100 mg tablet 300 mg PO DAILY Qty: 270 RF: 3 dextroamphetamine-amphetamine 10 mg tablet 10 mg PO BID MDD 20 mg Qty: 60 RF: 0 valacyclovir 1 gram tablet 1,000 mg PO Q8H Qty: 21 RF: 0 lisinopril 10 mg tablet 10 mg PO DAILY Qty: 30 RF: 0 oxycodone 5 mg tablet 5 mg PO Q6H PRN (Reason: pain) Qty: 14 RF: 0 Discharge Instructions Additional Instructions: Don't step on R foot. May rest splint on floor for balance when standing.(when shaving or brushing teeth) Elevate R ankle on 1-2 pillows when sitting. Wiggle your toes R foot 10 times/hour when awake to help prevent swelling. Keep dressings and splint dry and in place until return. Cover splint with plastic bag sealed with large rubber band below knee to shower. Return to 's office in one week. Call office tomorrow AM to make appt. Take ibuprofen 3 times/day for 10 days as prescribed to decrease pain and swelling. Take hydrocodone for breakthru pain, if needed. Equipment/Supplies: Non-Weight Bearing Crutches Activity:: Activity as Tolerated Shower/Bathe:: Cover Diet:: As Tolerated Discharge Orders Discharge Orders: Discharge Order (Routine); Ordered 02/18/20 Ordered By: Kameron Garcia DS: Diagnosis Discharge Diagnosis (1) Closed trimalleolar fracture of right ankle: Status: Acute
--- NOTE | 2020-02-18 15:09 | W.PM.OP ---
Date of service: 02/18/20 Time of Service: 15:09 Operative Note Operative Note DATE OF PROCEDURE: 02/18/20 PRE-OP DIAGNOSIS: Closed trimalleolar fracture equivalent right ankle POST-OP DIAGNOSIS: same PROCEDURE: Open reduction and internal fixation of trimalleolar fracture equivalent right ankle. Application of short leg posterior fiberglass splint. 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 He was a seen in the emergency room and found to have a trimalleolar fracture equivalent. This consisted of a ruptured deltoid ligament with a torn interosseous ligament and proximal fibular fracture. Also had a small fracture of the posterior malleolus. The talus was subluxed posteriorly and laterally. The subluxation was reduced in the emergency room and he was placed in the splint. Open reduction and internal fixation was recommended as optimal treatment since the reduction cannot be maintained by closed means. Risk and complication of the procedure been discussed with patient in detail preop. He was to proceed as soon as possible. Findings: The articular surface of the tibial plafond and and talus were not damaged. Procedure Description: Patient was taken the operating room on 02/18/2020 where a spinal anesthetic was administered. Once good spinal was obtained, patient was placed supine operating table and a roll was placed under the right buttock. Proximal tourniquet was applied to the right upper thigh. The foot was washed with Hibiclens soap and water. The skin was then prepped with chlorhexidine. Ankle was then draped free in usual sterile fashion. The right upper extremity was exsanguinated by elevation and the tourniquet was inflated to 325 mmHg. Short of slightly curved the medial incision of the ankle was then performed. I was able to avoid the superficial abrasion over the distal tibia with the incision. Saphenous vein was identified and retracted medially. The avulses anterior capsule and superficial deltoid were retracted laterally exposing the ankle joint. The articular surface of the tibial plafond and the talus were quite nicely visualized. The wounds irrigated with saline solution and suctioned thoroughly. The articular surfaces were undamaged. The talus could be anatomic reduced under direct vision. Using a 2.5 drill a predrilled hole for suture anchor in the shoulder of the medial ankle joint. A 5 oh metal suture anchor was then placed and countersunk. The 2 preloaded sutures of #2 FiberWire were then passed through the anterior capsule past with the evulsed anterior capsule and superficial deltoid ligament in a horizontal mattress fashion. The talus was then held reduced by Environment Friendly Landscape Designer while I tighten the sutures. This provided substantial reduction of the ankle mortise. Attention was then turned to the lateral side. The fibula was temporarily and provisionally fixed to the tibia with a partially threaded K wire. The K wire was introduced from lateral to medial while the ankle mortise was held reduced. Reduction was then checked with the C-arm image intensifier. The ankle mortise was anatomically reduced. I then proceeded to place 2 tricortical 4 oh cancellus screws the most distal one at the level of the distal epiphyseal scar of the tibia and the second screw about three quarters to an inch proximal to it. The screws were maximally tightened with the ankle dorsiflexed to prevent over tightening. Using a C-arm image then to fire confirm that the ankle mortise was anatomically reduced. I also used the C arm to scan the proximal fibular fracture. The proximal fibular fracture was now also anatomically reduced by means of indirect reduction of the ankle joint. Margins of the incision were infiltrated 0.25% Marcaine with epinephrine solution and they were approximated with interrupted 3-0 nylon sutures. The wounds were dressed with Xeroform gauze sterile gauze 4 x 4's and ABD pad medially wrapped with a 4 inch Kerlix bandage. Held down with 6 inch Elio bandages. Tourniquet was released and there was no breakthrough bleeding to the dressings. Patient was then discharged to the recovery room in good condition. Patient was later discharged home from day surgery unit when fully recovered from a spinal anesthetic. He is given instructions to be non-weightbearing on the right side with a walker or crutches. He may rest the splint on the floor for balance when he standing, but he is not to step on the right foot. He is keep the dressings and splint dry and intact until he follows up with me in 1 week. He may cover the splint with a plastic bag sealed with a large rubber band below the knee to shower. He is instructed to elevate his right ankle in 1-2 pillows as much as possible. He will follow-up with Dr. Garcia in 1 week. He is encouraged to wiggle his toes 10 times an hour while awake to help prevent swelling. He is given prescription for ibuprofen 800 mg p.o. 3 times daily to decrease his swelling and pain. He should call my office tomorrow to make a follow-up appointment.
[2020-02-18] MEDS: Ketorolac 30 MG/ML VIAL IVP (15:24)
[2020-02-18 15:26] VITALS: BP 152/79; PULSE 66; RESP 18; TEMP 37.2; O2SAT 97
[2020-02-18 15:59] VITALS: BP 136/77; PULSE 62; RESP 16; TEMP 36.7; O2SAT 98
--- NOTE | 2020-02-18 16:20 | IN_ITS ---
Date of service: 02/18/20 Time of Service: 16:20 PT Notes Visit Reasons: ORIF OF TRIMALLEOLAR FX R ANKLE Physical Therapy Initial Evaluation Date: 02/18/2020 Referring Doctor: Kameron Garcia MD PT Orders: PT CONSULT: Status post Ortho surgery. Safety consult for DC. Precautions: Fall. Standard. NWB on right LE. Patient Profile/Admitting Diagnosis: 69-year-old male status post ORIF of a trimalleolar fracture of the right ankle. Mechanical fall on 02/16/2020 landing on R foot and right shoulder. PMHX: Medical History (Updated 02/16/20 @ 13:22 by Diana Alonso DO) Depression Essential hypertension Gout History of colon polyps History of tobacco use (Inactive) Hyperlipidemia Surgical History (Updated 02/08/20 @ 13:03 by Dia Guerra NP) cardiac cath (~2004) left Colonoscopy - IV Sedation (~2006) Colonoscopy - IV Sedation (09/03/16) Replacement of total knee joint 2008 BILATERAL 2009 REV RIGHT Status post cardiac catheterization (Inactive) Status post total bilateral knee replacement (Inactive) Social History/Home Situation: Patient lives in a private home with 12-14 steps to get into the house with a rail on one side. Independent with all aspects of ADLs prior to surgery. Equipment Owned/DME: Patient was provided with a front wheeled walker for mobility performance. Subjective: Patient reports about 2/10 pain on the right shoulder at rest and up to 8/10 with weight bearing and ambulation activity. States that he feels like he is walking on hot dogs on the left foot saying that it remains numb but that he is aware of where it is. Denies headache, chest pain, and dizziness. Objective: General Observation: Elio wraps over cast on right leg and foot. Mental Status: Alert and oriented x4 Pain: None on the right foot. 2/10 on the right shoulder at rest and 8/10 with weightbearing. ROM: Right Upper Extremity: Shoulder Flexion to about 170 degrees with pain at end range of movement. Shoulder abduction up to about 160 degrees with pain at end range of movement. Elbow flexion WFL. Wrist flexion WFL. Opening and closing of hand WFL. Left Upper Extremity: Shoulder Flexion WFL. Shoulder abduction WFL. Elbow flexion WFL. Wrist flexion WFL. Opening and closing of hand WFL. Right Lower Extremity: Hip flexion WFL. Hip abduction WFL. Knee flexion WFL. Ankle dorsiflexion NT. Ankle plantarflexion NT. Left Lower Extremity: Hip flexion WFL. Hip abduction WFL. Knee flexion WFL. Ankle dorsiflexion WFL. Ankle plantarflexion WFL. Strength: Right Upper Extremity: Shoulder flexors 3-/5. Shoulder abductors 3-/5. Elbow flexors 4/5. Elbow extensors 5/5. Medical Record Specialist strong. Left Upper Extremity: Shoulder flexors 5/5. Shoulder abductors 5/5. Elbow flexors 5/5. Elbow extensors 5/5. Medical Record Specialist strong. Right Lower Extremity: Hip flexors 5/5. Hip abductors 5/5. Knee flexors 3/5. Knee extensors NT. Ankle dorsiflexors NT. Ankle plantarflexors NT. Left Lower Extremity:Hip flexors 5/5. Hip abductors 5/5. Knee flexors 5/5. Knee extensors 5/5. Ankle dorsiflexors 5/5. Ankle plantarflexors 5/5. Sensation: Reports continued numbness on the left lower extremity. Bed Mobility/Transfers: Rolling standby assist Supine to sit standby assist Sit to supine standby assist Sit to stand CGA of 2 using front wheeled walker Stand to sit CGA of 2 using front wheeled walker Bed to chair CGA of 2 using front wheeled walker Chair to bed CGA of 2 using front wheeled walker Gait: Patient tolerated short distance ambulation of about 15 feet using front wheeled walker with CGA of PT and minimal verbal cueing for walker management and correct gait pattern. Reported 8/10 pain on right shoulder. NWB on right LE. Balance: Static Sitting: Normal Dynamic Sitting: Normal Static Standing: Fair with front wheeled walker Dynamic Standing: Fair with front wheeled walker Special Tests: Mobility Limitations Standardized Measure [facility] AM-PAC 6 clicks Basic Mobility Inpatient Short Form: Raw Score: 17 CMS Score: 50.57% deficit Assessment: Patient requires the use of a front wheeled walker and assistance of another person during mobility ADL performance due to unsteadiness from painful right shoulder, WB precaution, and after effect of anesthesia on bilateral lower extremities. He will require extensive assistance with negotiating 12-14 steps at home. Patient presents with clinical signs and symptoms consistent with current/admitting diagnoses that have resulted to mobility limitations, gait instability, generalized weakness, and impairment o that is what she does he says still being shaky she has some form of changef motor control as demonstrated by the following impairment level findings: 1. Decreased strength to right ankle major muscle groups 2. Impaired standing balance 3. Impaired activity tolerance 4. NWB on right LE Impairments are contributing to the following functional limitations: 1. Increased dependence with transfers 2. Inability to safely ambulate without assistive device and physical assistance 3. Increase completion time for mobility ADL performance 4. Increased fall risk 5. Inability to negotiate steps alone safely Patient is assessed as a 63956 moderate complexity based on the following: History: 69-year-old male with impairment level findings, functional limitations, and past medical history as indicated above Examination: Demonstrable impairment in strength, balance, and activity t olerance with underlying impairments and functional limitations as documented above Presentation:Evolving Decision Makin moderate complexity Goals: N/A. PT evaluation only. PT intervention: Session today consisted of evaluation and patient education/training on safe techniques with transfer and ambulation performance with weight bearing precaution using the front wheeled walker. Safety recommendations were also given and received well by patient. DISCHARGE RECOMMENDATIONS: Patient will benefit from home health PT services to initiate stair negotiation training with given WB precaution. TREATMENT CODE/TIME: 93464 x 29 minutes beginning at 16:20 PM Thank you very much for this referral. Keisha Burkett PT, DPT, CLT [facility] [place], [place]
[2020-02-18 16:43] VITALS: BP 163/83; PULSE 69; RESP 16; TEMP 36.7; O2SAT 97
== END 2020-02-18 16:57 | disposition home or self-care (01) ==
LOC: SUR 02-19 07:16
PROVIDERS: PCP Emergency Medicine; Visit Provider Orthopaedic Surgery
PROC: (CPT 28445; principal; 2020-02-18 12:30)
DX: S92.191A Other fracture of right talus, initial encounter for closed fracture (principal); S82.831A Other fracture of upper and lower end of right fibula, initial encounter for closed fracture; S93.421A Sprain of deltoid ligament of right ankle, initial encounter; W13.2XXA Fall from, out of or through roof, initial encounter; I10 Essential (primary) hypertension; K21.9 Gastro-esophageal reflux disease without esophagitis; Z96.651 Presence of right artificial knee joint
CPT/HCPCS: 28445; 27829; C1713; 97162; 73600; 73610; J0690; J1885; J2250; J2405

== ENCOUNTER 2020-02-26 10:40 | Outpatient (CLI) | payer OTHER, SELFPAY ==
--- NOTE | 2020-02-26 10:30 | DI.RAD_ITS ---
EXAM: XR ANKLE RT COMPLETE CLINICAL HISTORY: f/u orif TECHNIQUE: COMPARISON: XR ANKLE RT 2V from 02/18/2020 FINDINGS: Three views were obtained and show tibial fibular fixation screws in place as well as a suture anchor of the anterior aspect of the distal tibia. Osseous fragments are noted adjacent to medial and late ral malleoli. The ankle mortise is well maintained. Presumed nondisplaced fractures of lateral malleolus and posterior malleolus remained unchanged in al ignment. IMPRESSION:
== END 2020-02-26 11:00 ==
PROVIDERS: PCP Emergency Medicine; Referring Provider Emergency Medicine; Visit Provider Orthopaedic Surgery
DX: S82.851D Displaced trimalleolar fracture of right lower leg, subsequent encounter for closed fracture with routine healing; X58.XXXD Exposure to other specified factors, subsequent encounter; I10 Essential (primary) hypertension
CPT/HCPCS: L4361; 73610

== ENCOUNTER 2020-03-04 11:42 | Outpatient (CLI) | payer OTHER, SELFPAY ==
--- NOTE | 2020-03-04 11:00 | DI.RAD_ITS ---
EXAM: XR ANKLE RT COMPLETE CLINICAL HISTORY: s/p orif R ankle TECHNIQUE: 2D digital imaging was performed. COMPARISON: XR ANKLE RT COMPLETE from 02/16/2020 XR ANKLE RT COMPLETE from 02/16/2020 XR ANKLE RT COMPLETE from 02/26/2020 FINDINGS: There has been no change in the screws seen extending through the tibia and fibula. There is been n o change in the suture anchor in the anterior distal tibia. A bony fragment is again noted beneath t he medial malleolus. There is some spurring from both malleoli. The ankle joint space is well maint ained. No talar dome defect is seen. IMPRESSION: Stable appearance ankle hardware and fractures.
== END 2020-03-04 12:02 ==
PROVIDERS: PCP Emergency Medicine; Referring Provider Emergency Medicine; Visit Provider Orthopaedic Surgery
DX: S82.851D Displaced trimalleolar fracture of right lower leg, subsequent encounter for closed fracture with routine healing (principal); X58.XXXD Exposure to other specified factors, subsequent encounter; M75.101 Unspecified rotator cuff tear or rupture of right shoulder, not specified as traumatic; I10 Essential (primary) hypertension
CPT/HCPCS: 20610; 99213; 73610; J1040

== ENCOUNTER 2020-03-10 02:10 | Outpatient (CLI) | payer OTHER, SELFPAY ==
[2020-03-11 10:48] LABS: PSA, Screening 8.1 ng/mL (0.0-4.5)
== END 2020-03-10 02:30 ==
PROVIDERS: PCP Emergency Medicine; Visit Provider Nurse Practitioner Gerontology
DX: R97.20 Elevated prostate specific antigen [PSA] (principal); Z12.5 Encounter for screening for malignant neoplasm of prostate; Z80.42 Family history of malignant neoplasm of prostate
CPT/HCPCS: 36415; 84153

== ENCOUNTER → 2020-03-12 10:23 | Outpatient (BNVA) | payer OTHER, SELFPAY | PROVIDERS: PCP Emergency Medicine; Referring Provider Emergency Medicine; Visit Provider Nurse Practitioner Gerontology | DX: N40.1 Benign prostatic hyperplasia with lower urinary tract symptoms (principal); R33.8 Other retention of urine; Z80.42 Family history of malignant neoplasm of prostate; R97.20 Elevated prostate specific antigen [PSA]; I10 Essential (primary) hypertension | CPT/HCPCS: 99213 ==

== ENCOUNTER 2020-04-01 04:34 | Outpatient (CLI) | payer OTHER, SELFPAY ==
[2020-04-02 18:53] LABS: Free PSA/PSA Ratio 0.06 ratio
== END 2020-04-01 04:54 ==
PROVIDERS: PCP Emergency Medicine; Visit Provider Nurse Practitioner Gerontology
DX: N40.1 Benign prostatic hyperplasia with lower urinary tract symptoms (principal); R97.20 Elevated prostate specific antigen [PSA]; Z80.42 Family history of malignant neoplasm of prostate; S82.851D Displaced trimalleolar fracture of right lower leg, subsequent encounter for closed fracture with routine healing; X58.XXXD Exposure to other specified factors, subsequent encounter; I10 Essential (primary) hypertension
CPT/HCPCS: 36415; 84154

== ENCOUNTER 2020-04-01 13:00 | Outpatient (CLI) | payer OTHER, SELFPAY ==
--- NOTE | 2020-04-01 10:15 | DI.RAD_ITS ---
EXAM: XR ANKLE RT COMPLETE CLINICAL HISTORY: F/U ANKLE FRACTURE TECHNIQUE: COMPARISON: CR XR ANKLE RT COMPLETE from 03/04/2020 FINDINGS: Three views were obtained and again show fixation screws across the tibial fibular joint and suture a nchor in the anterior aspect of distal tibia. Os if a densities again noted adjacent to the malleoli including the posterior malleolus. No change in appearance from March 04 examination. IMPRESSION:
== END 2020-04-01 13:20 ==
PROVIDERS: PCP Emergency Medicine; Referring Provider Emergency Medicine; Visit Provider Orthopaedic Surgery
DX: S82.851D Displaced trimalleolar fracture of right lower leg, subsequent encounter for closed fracture with routine healing (principal)
CPT/HCPCS: 73610

== ENCOUNTER 2020-05-05 00:10 | Outpatient (CLI) | payer OTHER, SELFPAY ==
--- NOTE | 2020-05-05 08:15 | DI.US_ITS ---
EXAM: US PROSTATE BIOPSY CLINICAL HISTORY: Elevated PSA - # increase from 4 to 8 in 1 yr, fam hx prostate CA, R97.20, TECHNIQUE: Transrectal ultrasound was performed. COMPARISON: No exams were available for comparison FINDINGS: Ultrasound was provided for Dr. Samano for guidance with performing an ultrasound guided prostate bio psy. Please see procedure note for details. DATA REPOSITORY:
--- NOTE | 2020-05-05 13:40 | PROST_PTH ---
PATIENT: Amadou Vasquez LOC: [facility] U#:[id number] AGE/SX: 69/M ROOM: RE05/05/[address]: Zoe Rizzo DNP : 1950 BED: DIS: 05/05/2020 SPEC #: [id number] RECD: 05/05/20 15:42 STATUS: BE REQ #: [id number] MANUEL: 05/05/20 13:[address]: Zoe Rizzo DEPT: Surgical Specimen RECD BY: Joana Mendoza ENTERED: 05/05/20 15:43 SP TYPE: PROST OTHR DR: Manolo Eid DO Tissues: 1 - PROSTATE NEEDLE BIOPSY 2 - PROSTATE NEEDLE BIOPSY 3 - PROSTATE NEEDLE BIOPSY 4 - PROSTATE NEEDLE BIOPSY 5 - PROSTATE NEEDLE BIOPSY 6 - PROSTATE NEEDLE BIOPSY 7 - PROSTATE NEEDLE BIOPSY 8 - PROSTATE NEEDLE BIOPSY 9 - PROSTATE NEEDLE BIOPSY 10 - PROSTATE NEEDLE BIOPSY 11 - PROSTATE NEEDLE BIOPSY 12 - PROSTATE NEEDLE BIOPSY Procedures: GROSS AND MICRO LEVEL 4 IMMUNOPEROXIDASE STAIN Comments: [id number]
--- NOTE | 2020-05-05 13:42 | ROE_ITS ---
Date of service: 05/05/20 Time of Service: 13:43 Operative Note Operative Note DATE OF PROCEDURE: 05/05/20 PRE-OP DIAGNOSIS: Elevated PSA POST-OP DIAGNOSIS: same PROCEDURE: Transrectal ultrasound of the prostate with biopsies SURGEON: Nicko Samano ANESTHESIA: local ESTIMATED BLOOD LOSS: 10 PATHOLOGY: other (12 laterally directed biopsies) COMPLICATIONS: None Patient was transported to: other Patient's condition: stable Indications: This is a 69-year-old gentleman who has a family history of prostate cancer. He has been followed with serial PSA levels. His most recent level was 8.2 ng/mL with an unfavorable percentage free PSA. He has no abnormalities identified on digital rectal exam. He presents for ultrasound- guided biopsy of the prostate. Procedure Description: The patient was given a mechanical and antibiotic bowel prep. He was brought to the radiology suite on 05/05/2020. He is placed in the left lateral position. Transrectal imaging of the prostate was then performed using a variable megahertz transducer. The prostate volume was calculated at 34 cc. No specific hypoechoic areas were seen in the peripheral zone. No abnormalities were seen in the transition zone. A periprosthetic nerve block was performed using 1% lidocaine without epinephrine. A total of 12 laterally directed biopsies were then taken and sent to pathology for permanent section. The patient tolerated this procedure well with no complications.
== END 2020-05-05 00:30 ==
PROVIDERS: PCP Emergency Medicine; Visit Provider Nurse Practitioner Gerontology
DX: C61 Malignant neoplasm of prostate (principal); R97.20 Elevated prostate specific antigen [PSA]; N41.0 Acute prostatitis; Z80.42 Family history of malignant neoplasm of prostate
CPT/HCPCS: 55700; 76942; 76872; 88305; 88361

== ENCOUNTER 2020-05-06 10:40 | Outpatient (CLI) | payer OTHER, SELFPAY ==
--- NOTE | 2020-05-06 09:45 | DI.RAD_ITS ---
EXAM: XR ANKLE RT COMPLETE CLINICAL HISTORY: f/u fracture TECHNIQUE: 2D digital imaging was performed. COMPARISON: CR XR ANKLE RT COMPLETE from 04/01/2020 FINDINGS: Two screws are again noted through the distal tibia and fibula. There is now a fracture through the more superior screw. A metallic anchor is seen in the anterior distal tibia which is unchanged. Ch ronic appearing bony densities are noted beneath the lateral malleolus. The ankle mortise is not kim ear widened. No talar dome defect is seen. IMPRESSION: Interval fracture of the superior tibial talar screw.
--- NOTE | 2020-05-06 09:51 | DI.RAD_ITS ---
EXAM: XR TIB/FIB RT CLINICAL HISTORY: f/u TECHNIQUE: 2D digital imaging was performed. COMPARISON: CR,XR XR TIB/FIB RT from 02/16/2020 FINDINGS: There has been no change in the alignment of the proximal fibular fracture shows some interval incre ase in healing. There has been no change in the knee prosthesis.
== END 2020-05-06 11:00 ==
PROVIDERS: PCP Emergency Medicine; Visit Provider Orthopaedic Surgery
DX: S82.851D Displaced trimalleolar fracture of right lower leg, subsequent encounter for closed fracture with routine healing (principal); T84.196A Other mechanical complication of internal fixation device of bone of right lower leg, initial encounter; X58.XXXD Exposure to other specified factors, subsequent encounter; I10 Essential (primary) hypertension
CPT/HCPCS: 99213; 73590; 73610

== ENCOUNTER → 2020-05-16 14:46 | Outpatient (BNVA) | payer OTHER, SELFPAY | PROVIDERS: PCP Emergency Medicine; Referring Provider Emergency Medicine; Visit Provider Urology | DX: C61 Malignant neoplasm of prostate (principal); I10 Essential (primary) hypertension | CPT/HCPCS: 99213 ==

== ENCOUNTER 2020-06-20 22:33 | Outpatient (REF) | payer OTHER, SELFPAY ==
[2020-06-20 23:30] LABS: C-Reactive Protein 0.37 mg/dL (0.0-0.3); Uric Acid 4.4 mg/dL (3.5-7.2)
== END 2020-06-20 22:53 ==
LOC: NCHCN 22:33
PROVIDERS: PCP Emergency Medicine; Visit Provider Emergency Medicine
DX: M10.9 Gout, unspecified (principal)
CPT/HCPCS: 84550; 86140

== ENCOUNTER 2020-08-14 02:38 | Outpatient (CLI) | payer OTHER, SELFPAY ==
[2020-08-14 22:21] LABS: PSA, Diagnostic 6.4 ng/mL (0.0-4.5)
== END 2020-08-14 02:58 ==
PROVIDERS: PCP Emergency Medicine; Visit Provider Urology
DX: C61 Malignant neoplasm of prostate (principal)
CPT/HCPCS: 36415; 84153

== ENCOUNTER → 2020-08-22 08:25 | Outpatient (BNVA) | payer OTHER, SELFPAY | PROVIDERS: PCP Emergency Medicine; Referring Provider Emergency Medicine; Visit Provider Urology | DX: C61 Malignant neoplasm of prostate (principal); I10 Essential (primary) hypertension | CPT/HCPCS: 99213 ==

== ENCOUNTER 2020-09-11 17:10 | Outpatient (REF) | payer OTHER, SELFPAY ==
[2020-09-17 15:51] LABS: Patient Race White; SARS-CoV-2 RNA Undetected (Undetected); SARS-CoV-2 Specimen Source Nasal
== END 2020-09-11 17:30 ==
LOC: NCHCN 17:10
PROVIDERS: PCP Emergency Medicine; Visit Provider Nurse Practitioner Family
DX: Z20.828 Contact with and (suspected) exposure to other viral communicable diseases (principal)
CPT/HCPCS: U0003

== ENCOUNTER 2020-11-19 03:56 | Outpatient (CLI) | payer OTHER, SELFPAY ==
[2020-11-19 12:47] LABS: Anion Gap 7.5 mmol/L (3-11); BUN 17 mg/dL (7-18); CO2 27.5 mmol/L (21.0-32.0); CREATININE 1.18 mg/dL (0.70-1.30); Calcium 8.1 mg/dL (8.5-10.1); Chloride 102 mmol/L (98-107); Glucose 106 mg/dL (74-106); Potassium 4.3 mmol/L (3.5-5.1); Sodium 137 mmol/L (136-145); Uric Acid 3.7 mg/dL (3.5-7.2)
[2020-11-19 17:47] LABS: PSA, Diagnostic 6.4 ng/mL (0.0-4.5)
== END 2020-11-19 04:16 ==
PROVIDERS: PCP Emergency Medicine; Visit Provider Urology
DX: I10 Essential (primary) hypertension (principal); M10.9 Gout, unspecified; C61 Malignant neoplasm of prostate
CPT/HCPCS: 36415; 80048; 84153; 84550

== ENCOUNTER 2020-11-21 00:31 | Outpatient (CLI) | payer OTHER, SELFPAY ==
[2020-11-21 13:08] LABS: Albumin 4.4 g/dL (3.4-5.0); Magnesium 2.2 mg/dL (1.8-2.4)
[2020-11-26 16:13] LABS: PTH-Related Peptide <0.4 pmol/L (< or = 4.2)
[2020-11-27 16:34] LABS: 1,25-Dihydroxyvitamin D 46 pg/mL (18-64)
== END 2020-11-21 00:51 ==
PROVIDERS: PCP Emergency Medicine; Visit Provider Emergency Medicine
DX: I10 Essential (primary) hypertension (principal); E83.51 Hypocalcemia
CPT/HCPCS: 36415; 82040; 82310; 82397; 82652; 83735

== ENCOUNTER → 2020-11-24 09:21 | Outpatient (BNVA) | payer OTHER, SELFPAY | PROVIDERS: PCP Emergency Medicine; Referring Provider Emergency Medicine; Visit Provider Nurse Practitioner Gerontology | DX: C61 Malignant neoplasm of prostate (principal) | CPT/HCPCS: 99213 ==

== ENCOUNTER 2020-12-31 00:54 | Outpatient (CLI) | payer OTHER, SELFPAY ==
--- NOTE | 2020-12-31 07:15 | DI.RAD_ITS ---
EXAM: XR LUMBAR SPINE COMPLETE CLINICAL HISTORY: LOW BACK PAIJN, M54.5. TECHNIQUE: 2D digital imaging was performed. COMPARISON: No exams were available for comparison FINDINGS: There are 5 lumbar type vertebral bodies. There is normal alignment. No spondylolysis or spondyloli sthesis is present. The disc heights are well maintained. Endplate osteophytes are seen at L3-4. T he vertebral, bodies disc spaces and posterior elements are otherwise well maintained. No acute frac ture or subluxation is noted. Atherosclerosis is noted. IMPRESSION: Mild degenerative changes in the lumbar spine. DATA REPOSITORY: RADIATION DOSE DELIVERED:
== END 2020-12-31 01:14 ==
PROVIDERS: PCP Emergency Medicine; Visit Provider Emergency Medicine
DX: M54.5 Low back pain (principal)
CPT/HCPCS: 72110

== ENCOUNTER → 2021-02-17 11:08 | Outpatient (BNVA) | payer OTHER, SELFPAY | PROVIDERS: PCP Emergency Medicine; Referring Provider Emergency Medicine; Visit Provider Internal Medicine Cardiovascular Disease | DX: R42 Dizziness and giddiness (principal); I10 Essential (primary) hypertension; Z79.899 Other long term (current) drug therapy | CPT/HCPCS: 99203; 99213 ==

== ENCOUNTER 2021-02-18 02:59 | Outpatient (CLI) | payer OTHER, SELFPAY ==
[2021-02-18 17:22] LABS: PSA, Diagnostic 6.8 ng/mL (0.0-4.5)
== END 2021-02-18 03:00 | disposition home or self-care (01) ==
LOC: LOS 02:59
PROVIDERS: PCP Emergency Medicine; Visit Provider Nurse Practitioner Gerontology
DX: C61 Malignant neoplasm of prostate (principal)
CPT/HCPCS: 36415; 84153

== ENCOUNTER → 2021-02-23 08:05 | Outpatient (BNVA) | payer OTHER, SELFPAY | PROVIDERS: PCP Emergency Medicine; Referring Provider Emergency Medicine; Visit Provider Nurse Practitioner Gerontology | DX: C61 Malignant neoplasm of prostate (principal); Z87.891 Personal history of nicotine dependence; R91.1 Solitary pulmonary nodule | CPT/HCPCS: 99214 ==

== ENCOUNTER 2021-04-16 00:36 | Outpatient (CLI) | payer OTHER, SELFPAY ==
--- NOTE | 2021-04-16 07:30 | DI.CT_ITS ---
Exam(s) CT CHEST W EXAM: CT CHEST W CLINICAL HISTORY: Follow-up right pulmonary nodule,CHEST PAIN MADE WORSE WITH BREATHING,R07.1. TECHNIQUE: Multi planar reconstructions were performed. CONTRAST MATERIAL: Omnipaque 350; 70 cc COMPARISON: CT CT CHEST/ABD/PEL WO from 02/16/2020 FINDINGS: CHEST: LUNGS: The previously described 5 millimeter noncalcified nodule in the right lower lobe is unchanged . There are no new additional nodules evident in the right lung. In the opposite-left lung there is a small focal pleural thickening posteriorly over the left lower l obe measuring 5 x 4 millimeters, not previously evident. No other left lung findings. There are no pleural effusions. There are no new new findings in the trachea and mainstem bronchi. MEDIASTINUM: There is no hilar nor mediastinal adenopathy. Visualized thyroid unremarkable. CARDIAC: Heart size is normal. There is no pericardial effusion.Caliber of the thoracic aorta is wit hin normal limits. VISUALIZED UPPER ABDOMEN:There are no significant adrenal masses. The liver is less hypodense than p revious implying decrease in amount of hepatic steatosis. However, there is a subcapsular relatively hypodense area in the anterior right hepatic lobe measuring 2 x 2.2 cm. This may represent residual fatty replacement or possibly hemangioma. Cannot exclude more concerning pathology. OSSEOUS: No significant osseous lesions.. IMPRESSION: 1. Compared to the prior CT scan of 02/16/2020, the previously described 5 millimeter noncalcified no dule in the right lower lobe is unchanged. There are no new right lung findings. However, there is a small focal area of pleural thickening posteriorly on the opposite-left side over the left lower lo be measuring approximately 5 x 4 millimeters which was not evident on the prior study repeat CT scan in 6 months time is recommended. 2. The amount of hepatic steatosis seen on the lower most images of this chest study has decreased. However, there is a 2 x 2.2 cm area of hypodensity in the subcapsular anterior right hepatic lobe now evident. Considerations are for possible hemangioma of the liver versus persistent fatty parenchyma l change. Cannot exclude more concerning pathology. Recommend follow-up contrast infused MRI of the liver with hemangioma protocol. RADIATION DOSE DELIVERED: 466.17mGy.cm Total DLP DATA REPOSITORY: All CT scans at this facility are submitted to the National Radiology Data Registry (NRDR) Dose Index Registry (DIR) with the [employer] ([employer]). RADIATION OPTIMIZATION: All CT scans at this facility use at least one of these dose optimization te chniques: automated exposure control; mA and/or kV adjustment per patient size (includes targeted exa ms where dose is matched to clinical indication); or iterative reconstruction.
[2021-04-16] MEDS: Omnipaque 350 MG/ML 100 ML BTL IJ (09:36)
[2021-04-16] MEDS: Normal Saline - Diluent 50 ML VIAL IV (09:37)
== END 2021-04-16 00:56 ==
PROVIDERS: PCP Emergency Medicine; Visit Provider Emergency Medicine
DX: R42 Dizziness and giddiness (principal); I10 Essential (primary) hypertension; Z79.899 Other long term (current) drug therapy; R07.1 Chest pain on breathing; R91.1 Solitary pulmonary nodule
CPT/HCPCS: 71260; 99213; J3490

== ENCOUNTER 2021-05-14 03:24 | Outpatient (CLI) | payer OTHER, SELFPAY ==
[2021-05-15 08:51] LABS: PSA, Diagnostic 7.8 ng/mL (0.0-4.5)
== END 2021-05-14 03:25 | disposition home or self-care (01) ==
LOC: LOS 03:24
PROVIDERS: PCP Emergency Medicine; Visit Provider Nurse Practitioner Gerontology
DX: C61 Malignant neoplasm of prostate (principal)
CPT/HCPCS: 36415; 84153

== ENCOUNTER → 2021-05-18 08:28 | Outpatient (BNVA) | payer OTHER, SELFPAY | PROVIDERS: PCP Emergency Medicine; Visit Provider Nurse Practitioner Gerontology | DX: C61 Malignant neoplasm of prostate (principal) | CPT/HCPCS: 99214 ==

== ENCOUNTER → 2021-06-24 10:16 | Outpatient (BNVA) | payer OTHER, SELFPAY | PROVIDERS: PCP Emergency Medicine; Referring Provider Emergency Medicine; Visit Provider Nurse Practitioner Gerontology | DX: C61 Malignant neoplasm of prostate (principal) | CPT/HCPCS: 99214 ==

== ENCOUNTER 2021-09-15 13:52 | Outpatient (REF) | payer MEDICARE, SELFPAY | END 2021-09-15 13:53 | disposition home or self-care (01) | LOC: LBN 13:52 | PROVIDERS: PCP Emergency Medicine; Visit Provider Urology | DX: R39.9 Unspecified symptoms and signs involving the genitourinary system (principal) | CPT/HCPCS: 87086 ==

== ENCOUNTER → 2021-10-01 10:02 | Outpatient (BNVA) | payer MEDICARE, SELFPAY | PROVIDERS: PCP Emergency Medicine; Referring Provider Emergency Medicine; Visit Provider Internal Medicine Cardiovascular Disease | DX: E78.5 Hyperlipidemia, unspecified (principal); I10 Essential (primary) hypertension | CPT/HCPCS: 99212; 99442 ==

== ENCOUNTER 2021-10-05 15:42 | Outpatient (CLI) | payer MEDICARE, SELFPAY | END 2021-10-05 15:43 | disposition home or self-care (01) | LOC: DI.CM 15:44 | PROVIDERS: PCP Emergency Medicine; Visit Provider Family Medicine | DX: R69 Illness, unspecified (principal) ==

== ENCOUNTER 2021-10-05 19:21 | Outpatient (REF) | payer MEDICARE, SELFPAY ==
[2021-10-07 23:09] LABS: COVID-19 RT-PCR UVMMC Result Negative (Negative)
== END 2021-10-05 19:22 | disposition home or self-care (01) ==
LOC: LBN 19:21
PROVIDERS: PCP Emergency Medicine; Visit Provider Family Medicine
DX: Z20.822 Contact with and (suspected) exposure to COVID-19 (principal); R50.9 Fever, unspecified
CPT/HCPCS: U0003

== ENCOUNTER 2021-12-18 03:50 | Outpatient (CLI) | payer MEDICARE, SELFPAY ==
[2021-12-18 14:57] LABS: Anion Gap 9.9 mmol/L (3-11); BUN 22 mg/dL (7-18); CO2 28.1 mmol/L (21.0-32.0); CREATININE 1.3 mg/dL (0.70-1.30); Calcium 9.5 mg/dL (8.5-10.1); Calculated LDL 93 mg/dL (<100); Chloride 105 mmol/L (98-107); Cholesterol 201 mg/dL (<200); Estimated GFR 54.73 (mL/min/1.73m2); Glucose 60 mg/dL (74-106); HDL Cholesterol 84 mg/dL (40-60); Potassium 4.5 mmol/L (3.5-5.1); Sodium 143 mmol/L (136-145); Triglyceride 120 mg/dL (<150)
[2021-12-22 10:27] LABS: PSA, Ultrasensitive <0.01 ng/mL (<= 4.5)
== END 2021-12-18 03:51 | disposition home or self-care (01) ==
LOC: LBO 03:50
PROVIDERS: Urology; PCP Family Medicine; Visit Provider Emergency Medicine
DX: E78.5 Hyperlipidemia, unspecified (principal); I10 Essential (primary) hypertension; C61 Malignant neoplasm of prostate
CPT/HCPCS: 36415; 80048; 80061; 84153

== ENCOUNTER 2022-04-13 02:37 | Outpatient (CLI) | payer MEDICARE, SELFPAY ==
[2022-04-14 15:50] LABS: PSA, Ultrasensitive <0.01 ng/mL (<= 4.5)
== END 2022-04-13 02:38 | disposition home or self-care (01) ==
LOC: LOS 02:37
PROVIDERS: PCP Family Medicine; Visit Provider Urology
DX: C61 Malignant neoplasm of prostate (principal)
CPT/HCPCS: 36415; 84153

== ENCOUNTER 2022-05-12 00:52 | Outpatient (CLI) | payer MEDICARE, SELFPAY ==
--- NOTE | 2022-05-12 08:15 | DI.CT_ITS ---
Exam(s) CT CHEST WO EXAM: CT CHEST WO CLINICAL HISTORY: f/u lung nodule, RT LOWER LOBE PULMONARY NODULE, R91.1. TECHNIQUE: Multi planar reconstructions were performed. CONTRAST MATERIAL: None COMPARISON: CT CT CHEST W from 04/16/2021 FINDINGS: CHEST: LUNGS: Previously described right lower lobe 4 millimeter nodule remains unchanged and there are no n ew focal right lung findings. In the opposite-left lung the previously described pleural based nodular thickening is no longer seen and there are no other significant focal left lung findings. There are no pleural effusions on eith er side. MEDIASTINUM: There is no obvious hilar nor mediastinal adenopathy. Visualized thyroid unremarkable.No obvious axillary adenopathy CARDIAC: Heart size is normal. There is no pericardial effusion.Caliber of the thoracic aorta is wit hin normal limits. VISUALIZED UPPER ABDOMEN: OSSEOUS: No significant osseous lesions.. IMPRESSION: 1. Continued unchanged stable appearance of 4 millimeter right lower lobe nodule. No other pulmonary findings. Indeed, the previously present pleural based small nodule in the left lower lobe has reso lved. 2. No pleural effusions nor intrathoracic adenopathy. RADIATION DOSE DELIVERED: 485.83mGy.cm Total DLP DATA REPOSITORY: All CT scans at this facility are submitted to the National Radiology Data Registry (NRDR) Dose Index Registry (DIR) with the [employer] ([employer]). RADIATION OPTIMIZATION: All CT scans at this facility use at least one of these dose optimization te chniques: automated exposure control; mA and/or kV adjustment per patient size (includes targeted exa ms where dose is matched to clinical indication); or iterative reconstruction.
== END 2022-05-12 01:12 ==
LOC: DI 00:52
PROVIDERS: PCP Family Medicine; Visit Provider Family Medicine
DX: R91.1 Solitary pulmonary nodule (principal)
CPT/HCPCS: 71250

== ENCOUNTER 2022-05-12 16:18 | Outpatient (CLI) | payer MEDICARE, SELFPAY ==
[2022-05-12 15:22] LABS: ESR 1 mm/hr (0-20)
[2022-05-12 16:27] LABS: C-Reactive Protein 0.05 mg/dL (0.0-0.3)
== END 2022-05-12 16:19 | disposition home or self-care (01) ==
LOC: LBO 16:19
PROVIDERS: PCP Family Medicine; Visit Provider Family Medicine
DX: R91.1 Solitary pulmonary nodule (principal)
CPT/HCPCS: 36415; 85652; 86140

== ENCOUNTER 2022-07-21 03:26 | Outpatient (CLI) | payer MEDICARE, SELFPAY ==
[2022-07-21 12:27] LABS: Absolute Basophil Count 0.03 10^3/uL (0.0-0.2); Absolute Eosinophil Count 0.21 10^3/uL (0.0-0.7); Absolute Lymphocyte Count 1.08 10^3/uL (1.2-3.4); Absolute Monocyte Count 0.26 10^3/uL (0.1-0.8); Absolute Neutrophil Count 1.74 10^3/uL (1.2-6.7); Basophils % 0.9; Eosinophils % 6.3; HCT 44.7 % (40.0-50.0); HGB 15.1 g/dL (13.5-17.5); Lymphocytes % 32.5; MCH 32.3 pg (27.0-33.0); MCHC 33.8 % (32.0-36.0); MCV 96 fL (80-95); MPV 9.8 fL (8.0-11.0); Monocytes % 7.8; Neutrophils % 52.5; Platelet Count 196 10^3/uL (130-400); RBC 4.67 10^6/uL (4.36-5.78); RDW 12.4 % (11.8-14.1); RDW-SD 43.4 fL; WBC 3.32 10^3/uL (4.4-10.8)
[2022-07-21 12:49] LABS: Anion Gap 8.8 mmol/L (3-11); BUN 19 mg/dL (7-18); CO2 28.2 mmol/L (21.0-32.0); Calcium 9.3 mg/dL (8.5-10.1); Chloride 101 mmol/L (98-107); Estimated GFR 81.47 (mL/min/1.73m2); Glucose 109 mg/dL (74-106); Potassium 4.3 mmol/L (3.5-5.1); Sodium 138 mmol/L (136-145); Uric Acid 3.7 mg/dL (3.5-7.2)
[2022-07-22 10:01] LABS: Lyme Ab w Rflx to Lyme Confirm Negative (Negative)
[2022-07-22 13:13] LABS: PSA, Ultrasensitive <0.01 ng/mL (<= 4.5)
[2022-07-23 19:45] LABS: Anaplasma phagocytophilum Negative (Negative); B. miyamotoi PCR Negative (Negative); Babesia divergens/MO-1 Negative (Negative); Babesia duncani Negative (Negative); Babesia microti Negative (Negative); Ehrlichia chaffeensis Negative (Negative); Ehrlichia ewingii/canis Negative (Negative); Ehrlichia muris eauclairensis Negative (Negative)
== END 2022-07-21 03:27 | disposition home or self-care (01) ==
PROVIDERS: Nurse Practitioner Family; PCP Family Medicine; Visit Provider Urology
DX: M10.9 Gout, unspecified (principal); M1A.9XX0 Chronic gout, unspecified, without tophus (tophi); Z00.00 Encounter for general adult medical examination without abnormal findings; C61 Malignant neoplasm of prostate; M25.50 Pain in unspecified joint
CPT/HCPCS: 36415; 80048; 84153; 87798; 84550; 85025; 86618

== ENCOUNTER 2022-08-17 03:40 | Outpatient (CLI) | payer MEDICARE, SELFPAY ==
[2022-08-17 12:13] LABS: Abs Immature Grans 0.01 10^3/uL (0.0-0.06); Absolute Basophil Count 0.03 10^3/uL (0.0-0.2); Absolute Eosinophil Count 0.41 10^3/uL (0.0-0.7); Absolute Lymphocyte Count 1.68 10^3/uL (1.2-3.4); Absolute Monocyte Count 0.34 10^3/uL (0.1-0.8); Absolute Neutrophil Count 2.63 10^3/uL (1.2-6.7); Basophils % 0.6; HCT 40.7 % (40.0-50.0); HGB 14.4 g/dL (13.5-17.5); Immature Grans % 0.2; Lymphocytes % 32.9; MCH 32.8 pg (27.0-33.0); MCHC 35.4 % (32.0-36.0); MCV 93 fL (80-95); MPV 9.3 fL (8.0-11.0); Monocytes % 6.7; Neutrophils % 51.6; Platelet Count 217 10^3/uL (130-400); RBC 4.39 10^6/uL (4.36-5.78); RDW 12.6 % (11.8-14.1); RDW-SD 43.2 fL
[2022-08-17 12:16] LABS: ESR 2 mm/hr (0-20)
[2022-08-17 12:39] LABS: ALT 40 U/L (16-63); AST 27 U/L (15-37); Albumin 4.3 g/dL (3.4-5.0); Alkaline Phosphatase 97 U/L (46-116); Anion Gap 9.1 mmol/L (3-11); BUN 20 mg/dL (7-18); Bilirubin, Total 0.5 mg/dL (0.2-1.0); C-Reactive Protein 0.05 mg/dL (0.0-0.3); CO2 25.9 mmol/L (21.0-32.0); CREATININE 1.1 mg/dL (0.70-1.30); Calcium 9.4 mg/dL (8.5-10.1); Chloride 105 mmol/L (98-107); Estimated GFR 72.67 (mL/min/1.73m2); Glucose 106 mg/dL (74-106); Potassium 4.4 mmol/L (3.5-5.1); Sodium 140 mmol/L (136-145); Total Protein 7.5 g/dL (6.4-8.2)
[2022-08-17 17:14] LABS: Rheumatoid Factor <8.6 IU/mL (<12.0)
== END 2022-08-17 03:41 | disposition home or self-care (01) ==
LOC: LOS 03:40
PROVIDERS: PCP Family Medicine; Visit Provider Family Medicine
DX: M15.9 Polyosteoarthritis, unspecified (principal); D72.819 Decreased white blood cell count, unspecified; M25.50 Pain in unspecified joint; Z00.00 Encounter for general adult medical examination without abnormal findings
CPT/HCPCS: 36415; 80053; 85652; 85025; 86140; 86431

== ENCOUNTER 2022-11-15 01:29 | Outpatient (CLI) | payer MEDICARE, SELFPAY ==
--- NOTE | 2022-11-15 07:54 | DI.RAD_ITS ---
Exam(s) XR SHOULDER RT COMPLETE 2+V EXAM: XR SHOULDER RT COMPLETE 2+V CLINICAL HISTORY: right shoulder pain,m25.50,rt rotator cuff tear,m75.101,arthralgia. TECHNIQUE: 2D digital imaging was performed of the right shoulder. Five images were obtained. AP, Grashey, Y-view and axillary views were obtained. COMPARISON: CR,XR XR SHOULDER RT COMPLETE 2+V from 02/16/2020 FINDINGS: BONES: No acute fracture is present. No bony destructive lesion is seen. JOINTS: No dislocation present. Mild degenerative changes are seen at the acromioclavicular joint. SOFT TISSUE: There is a soft tissue calcification inferior to the coracoid process. It appears chron ic. This may represent a loose body. IMPRESSION: No acute abnormality. DATA REPOSITORY: RADIATION DOSE DELIVERED:
== END 2022-11-15 01:49 ==
LOC: DI 01:29
PROVIDERS: PCP Family Medicine; Visit Provider Family Medicine
DX: M75.101 Unspecified rotator cuff tear or rupture of right shoulder, not specified as traumatic (principal)
CPT/HCPCS: 73030

== ENCOUNTER → 2022-12-01 09:59 | Outpatient (BNVA) | payer MEDICARE, SELFPAY | PROVIDERS: PCP Family Medicine; Referring Provider Family Medicine; Visit Provider Student in an Organized Health Care Education/Training Program | DX: M75.101 Unspecified rotator cuff tear or rupture of right shoulder, not specified as traumatic (principal) | CPT/HCPCS: 99214 ==

== ENCOUNTER 2022-12-29 01:13 | Outpatient (CLI) | payer MEDICARE, SELFPAY ==
--- NOTE | 2022-12-29 07:00 | DI.MRI_ITS ---
Exam(s) MR UPPER JOINT RT WO EXAM: MR UPPER JOINT RT WO CLINICAL HISTORY: R SHOULDER PAIN,rt rotator cuff tear, m75.101. TECHNIQUE: Multiplanar multisequence MRI was performed. COMPARISON: CR XR SHOULDER RT COMPLETE 2+V from 11/15/2022 FINDINGS: BONES: There is no fracture or contusion pattern. Small subchondral cysts are seen in the humeral hea d. JOINTS: The acromioclavicular joint is normal. The glenohumeral joint is normal. TENDONS: Supraspinatus: There is tendinosis of the supraspinatus tendon. There is a partial articular surface tear of the supraspinatus tendon anteriorly at its insertion site. Infraspinatus: There is tendinosis of the infraspinatus tendon. Subscapularis: There is tendinosis/partial tear of the subscapularis tendon. Teres Minor: Unremarkable. Biceps and [place]: There is medial subluxation of the biceps tendon. MUSCLES: Unremarkable. GLENOID LABRUM: There does appear to be degeneration of the labrum particularly posteriorly. No defi nite evidence of a tear. SOFT TISSUES: There are 2 round T1 and T2 hypointense nodules in the subcoracoid bursa. It correspon ds to the calcifications seen on the x-ray of the shoulder. This may represent osteochondromatosis o r loose bodies. LIGAMENTS: Unremarkable. OTHER: There is fluid seen in the subacromial bursa suggestive of bursitis. IMPRESSION: 1. Partial articular surface tear of the supraspinatus tendon at its insertion site anteriorly. 2. Tendinosis/partial tear of the subscapularis tendon. 3. Medial subluxation of the biceps tendon from the bicipital groove. 4. Subacromial bursitis. DATA REPOSITORY:
== END 2022-12-29 01:33 ==
PROVIDERS: PCP Family Medicine; Visit Provider Student in an Organized Health Care Education/Training Program
DX: M25.511 Pain in right shoulder (principal); M75.101 Unspecified rotator cuff tear or rupture of right shoulder, not specified as traumatic; M75.81 Other shoulder lesions, right shoulder; M75.51 Bursitis of right shoulder; M25.811 Other specified joint disorders, right shoulder
CPT/HCPCS: 73221

== ENCOUNTER → 2023-01-04 08:30 | Outpatient (BNVA) | payer MEDICARE, SELFPAY | PROVIDERS: PCP Family Medicine; Referring Provider Family Medicine; Visit Provider Student in an Organized Health Care Education/Training Program | DX: M75.101 Unspecified rotator cuff tear or rupture of right shoulder, not specified as traumatic (principal); M75.21 Bicipital tendinitis, right shoulder; M75.51 Bursitis of right shoulder | CPT/HCPCS: 99214 ==

== ENCOUNTER 2023-01-13 08:40 | Day surgery (SDC) | payer MEDICARE, SELFPAY ==
--- NOTE | 2023-01-12 15:34 | W.ANESPRE ---
General Info Date of Service Date Performed: 01/13/23 Height: 5 ft 8 in Weight: 72.575 kg Body Mass Index (BMI): 24.3 Surgical Procedure: Operation Date: 01/13/23 10:40 Proposed Procedure Side Surgeon p Shoulder Rotator Cuff Arthroscopic w/Extensive Debridement, Biceps Tenodesis, Subacromial Decompression Right Loi Soria MD Meds Allergies and Home Medications Allergies Allergy/AdvReac Type Severity Reaction Status Date / Time [id number] Reductase AdvReac Intermediate diarrhea & Verified 01/12/23 13:49 Inhibitor leg cramps [[id number]-Ofq-Ojc Reductase Inhibitor] Home Medication Medication Instructions Recorded multivitamin 1 tab PO DAILY 02/16/13 acetaminophen 325 mg tablet 325 mg PO Q4H PRN 03/01/13 (Tylenol) amlodipine 2.5 mg tablet 2.5 mg PO DAILY #90 tabs 11/23/21 ibuprofen 800 mg tablet See Rx Instructions .Route 12/11/21 .COMPLEX #180 tabs rosuvastatin 20 mg tablet (Crestor) 20 mg PO DAILY #90 tab-caps 05/07/22 allopurinol 300 mg tablet 300 mg PO DAILY #90 tabs 06/14/22 lisinopril 20 mg tablet 20 mg PO DAILY #30 tabs 11/12/22 dextroamphetamine-amphetamine ER 20 mg PO DAILY #28 caps 12/06/22 20 mg 24hr capsule,extend release venlafaxine 75 mg capsule,extended 75 mg PO QAM #30 caps 12/30/22 release 24 hr Current Visit Medications: Current Medications Generic Name Dose Route Start Last Admin Trade Name Freq PRN Reason Stop Dose Admin Ringer's Solution 1,000 mls @ 30 mls/hr 01/13/23 06:00 IV 02/11/23 23:59 INFUSION CARLOS Cefazolin Sodium/Dextrose 2 gm in 50 mls @ 100 mls/hr 01/13/23 06:00 Ancef Duplex IVPB 02/11/23 23:59 PREOP CARLOS IV Miscellaneous Supplies 1 each 01/13/23 06:00 Iv Access IV 02/11/23 23:59 DIRECTED CARLOS Sodium Chloride 0 ml 01/13/23 06:00 Normal Saline Flush 10 Ml Syr IV 02/11/23 23:59 PRN PRN Sodium Chloride 0 ml 01/13/23 06:00 Normal Saline 10 Ml Vial IJ 02/11/23 23:59 DIRECTED PRN Sterile Water 0 ml 01/13/23 06:00 Water,Injection,Sterile 10 Ml Vial IJ 02/11/23 23:59 DIRECTED PRN PFSH Active Problems Active Problems: Problem Status Onset Code Depression 10/28/14 F32.9 Essential hypertension 08/15/13 I10 Gout M10.9 Hyperlipidemia 02/23/13 E78.5 Right rotator cuff tear M75.101 Low back pain M54.5 Right lower lobe pulmonary nodule R91.1 Osteoarthritis M19.90 Arthralgia M25.50 Major depression, recurrent, chronic F33.9 Tendonitis of long head of biceps brachii of right shoulder M75.21 Bursitis of right shoulder M75.51 Medical History Medical History Closed trimalleolar fracture of right ankle Family history of prostate cancer History of colon polyps History of shingles History of tobacco use quit 1995, 20 packyr hx Incidental lung nodule, > 3mm and < 8mm Prostate cancer Prostatectomy August 2021 Surgical History Surgical History History of radical prostatectomy (~2020) [facility] [place] 2020 Status post cardiac catheterization 2004 Status post total bilateral knee replacement (~2007) and revision of right in 2008 Tobacco Smoking/Tobacco Use Status: Former Tobacco Use Passive smoking exposure: Yes Second hand exposure: Yes Alcohol Alcohol Intake: current Alcohol intake frequency: a few times a month Substance Use Substance use: Occasionally Substance use type: marijuana Vital Signs and Lab Results Vital Signs Most Recent Vital Signs in EMR: Temp Pulse Resp BP Pulse Ox 36.1 C L 71 16 113/88 95 01/13/23 09:15 01/13/23 09:15 01/13/23 09:15 01/13/23 09:15 01/13/23 09:15 Lab Results Blood Type / Crossmatch: No Data to Display Complete Blood Count: No Data to Display Complete Metabolic Panel: No Data to Display Liver Function Panel: No Data to Display Coagulation Panel: No Data to Display Cardiac Panel: No Data to Display Arterial Blood Gas: No Data to Display Venous Blood Gas: No Data to Display Pancreas Panel: No Data to Display Thyroid Panel: No Data to Display Infectious Disease: No Data to Display Blood Cultures: No Data to Display Toxicology Panel: No Data to Display Imaging and Studies Imaging and Studies Study information below may be from another EMR and interpreted by another provider. Please see original notes in EMR for more complete details. 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% Anesthesia Assessment and Plan Anesthesia History Personal History: No History of Anesthesia Complications Family History: No Family History of Anesthesia Complications Exercise Tolerance Exercise Tolerance: Metabolic Equivalents>4 Cardiac & Pulmonary Exam Cardiac Exam: Normal S1/S2 Heart Sounds Pulmonary Exam: Clear Bilateral Breath Sounds Implantable Cardiac Device Does patient have a Pacemaker or an ICD?: No Airway Exam Known Difficult Airway: No Mallampati Class: 1 Mouth Opening: Normal (> 3cm) Thyromental Distance: Greater than 3 cm Neck Range of Motion: Full ROM Neck Circumference: Normal Teeth Condition: Normal Dentition ASA Classification ASA Score: ASA 2 Emergency Case?: No NPO Status NPO Status: NPO Clears >2 hours, Solids >8 hours Anesthesia Plan Resuscitation Status: Full Code Anesthesia Technique: General Anesthesia Airway Planned: Endotracheal Tube Pain Management: Surgeon and patient request nerve block Monitors Used: Standard Monitors Preoperative Comments:: 72 yo male for shoulder scope. Sig PMHx: HTN (amlodipine, lisinopril), right lower lobe nodule, depression, former smoker (quit 1995), prostate CA (prostatectomy), occ EtOH/cannabis. Previous Anes: - ankle ORIF, spinal, midaz, no issues. - prostate, mac 4 grade 1, masked with OPA, no issues
[2023-01-13] VITALS (9 sets, daily range): BP systolic 107–135; BP diastolic 55–91; PULSE 64–81; RESP 12–20; TEMP 36.1–36.8; O2SAT 93–99; BMI 24.3
--- NOTE | 2023-01-13 07:09 | PDOC.DSDIS_ITS ---
Date of service: 01/13/23 Time of Service: 15:00 Discharge Plan Disposition Patient Disposition: Home Discharge Details Attending Provider: Loi Soria Primary Care Provider: Leilani Sol Home Meds and New Rx's Prescriptions: New aspirin 81 mg tablet,delayed release (DR/EC) 81 mg PO DAILY 7 Days Qty: 7 0RF naproxen 250 mg tablet 250 - 500 mg PO BID PRNQty: 40 0RF Rx Instructions: take with a meal oxycodone 5 mg tablet 5 - 10 mg PO Q4H MDD 30 mg PRN (Reason: moderate to severe pain) Qty: 18 0RF Continued rosuvastatin [Crestor] 20 mg tablet 20 mg PO DAILY Qty: 90 3RF venlafaxine 75 mg capsule,extended release 24hr 75 mg PO QAM Qty: 30 1RF multivitamin 1 EACH capsule 1 tab PO DAILY acetaminophen [Tylenol] 325 MG tablet 325 mg PO Q4H PRN amlodipine 2.5 mg tablet 2.5 mg PO DAILY Qty: 90 8RF dextroamphetamine-amphetamine 20 mg capsule,extended release 24hr 20 mg PO DAILY MDD 20mg Qty: 28 0RF Discontinued ibuprofen 800 mg tablet See Rx Instructions .ROUTE .COMPLEX Qty: 180 3RF Dose Instruction: TAKE 1 TABLET BY MOUTH TWICE DAILY NEEDED FOR PAIN Rx Instructions: TAKE 1 TABLET BY MOUTH TWICE DAILY NEEDED FOR PAIN No Action allopurinol 300 mg tablet 300 mg PO DAILY Qty: 90 1RF lisinopril 20 mg tablet 20 mg PO DAILY Qty: 30 3RF Discharge Instructions Additional Instructions: Surgery: Right shoulder arthroscopy with rotator cuff repair (subscap and supras pinatus), biceps tenodesis, extensive debridement, and subacromial decompression. Activity: For 6 weeks, you should keep your arm at your side in a neutral position at all times except for physical therapy. Do not try to lift or raise your arm using your own muscles. You should use the sling whenever you are out of the house. You may have to adjust the abduction pillow or remove it for comfort. At home it is best to remove the sling and rest the arm on a pillow at your side or support the operative side with your other hand. You may allow the arm to dangle at your side. A physical therapy prescription will be sent electronically to begin in about 3 weeks. STANDARD protocol. Prescriptions: Aspirin 81 mg take 1 daily to prevent a blood clot for 7 days Naproxen 250 mg take 1-2 every 12 hours with a meal as needed for moderate pain Oxycodone 5 mg take 1-2 every 4-6 hours as needed for severe pain You may use nibi-puj-xnrtgxe Tylenol (acetaminophen) as needed for mild pain. These pain medications may be taken all at once or in different combinations as needed. Also, recommend Colace (docusate) as a stool softener as surgery and pain medicine cause constipation. You may try zcjo-xlt-ahqsest diphenhydramine (Benadryl) 25-50 mg nightly as a sleep aid Dressings: Remove shoulder bandage after 3 days. Leave the sticky Steri-Strips in place until they fall off or remove them after you shower. Cover the incisions with Band-Aids or leave them open to air. You may shower after 5 days. Follow-up: 10-[address] Soria You may take off the leg compression stockings this evening at home. You may also leave them on a few days longer if you have a history of leg swelling or edema. Let us know right away if you develop any redness, drainage, fevers, chest pain, or trouble breathing. Do not drink alcohol or drive for at least 24 hours after anesthesia. Please call the office during business hours with any questions or concerns. Discharge Orders Discharge Orders: Discharge Order (Routine); Ordered 01/13/23 Ordered By: Loi Soria DS: Diagnosis Discharge Diagnosis (1) Right rotator cuff tear: Status: Acute
--- NOTE | 2023-01-13 07:10 | W.PM.OP ---
Date of service: 01/13/23 Time of Service: 11:00 Operative Note Operative Note DATE OF PROCEDURE: 01/13/23 PRE-OP DIAGNOSIS: Right: 1. Rotator cuff tear 2. LHB tendinopathy 3. Bursitis POST-OP DIAGNOSIS: same PROCEDURE: Right 1. Rotator cuff repair, CPT# 25969. This involved repair of the subscapularis and supraspinatus using anchors and sutures to reattach the rotator cuff back to the footprint of the lesser and greater tuberosity. 2. Arthroscopic biceps tenodesis, CPT# 53403. This involved arthroscopically suturing and reattaching the long head of the biceps tendon to the proximal humerus at the superior margin of the bicipital groove with a screw at the correct tension. 3. Extensive debridement, CPT# 37421. This involved using arthroscopic hand instruments, power instruments, and radiofrequency instruments to release the long head of the biceps tendon, release [facility] L and anterior capsular adhesions, and debride areas of labral tearing, synovitis, and chondromalacia about the lesser tuberosity working within the glenohumeral joint anteriorly, superiorly and posteriorly. 4. Subacromial decompression with partial acromioplasty, CPT# 21881. This involved using arthroscopic power instruments and a radiofrequency wand to complete a bursectomy and smooth the undersurface of the acromion. The engineering inspection assistant was medically required in order to help assist in techniques above, which require positioning the arm, holding the arthroscope, and manipulating multiple instruments and sutures at the same time. This cannot be done without the help of an experienced engineering inspection assistant. SURGEON: Loi Soria SUPERVISOR [employer]: Bhavna Cooney ANESTHESIA TYPE: General LMA/ETT and Primary Nerve Block Refer to Anesthesia Record ESTIMATED BLOOD LOSS: 10 PATHOLOGY: none sent COMPLICATIONS: None Patient was transported to: PACU Patient's condition: stable Implants: Arthrex: 4.75mm SwiveLocks x 2 Indications: The patient was diagnosed with the above conditions and appropriately indicated for surgical intervention. Please see complete medical record for details. Findings: Exam under anesthesia: Moderately full range of motion, no instability Glenohumeral joint: Significant humeral head and glenoid chondromalacia. High?grade cartilage loss majority of posterior superior central humeral head. Moderate degenerative type labral fraying tearing including biceps pronation and degenerative type SLAP tear. Chronic?appearing scarred upper about half portion subscapularis tear with exposed upper lesser tuberosity with chronic fibrinous changes. Obvious defect far anterior supraspinatus that is nearly full-thickness over again chronic fibrinous bone changes with a thin bursal veil intact remnant tissue. Subacromial space: Largely intact bursal rotator cuff. Thin veil far anterior supraspinatus intact lateral tissue revealed the articular known defect. Significant bursitis. Irregular undersurface acromion. Procedure Description: In the operating room, general anesthesia was induced. Bilateral shoulders were examined. The patient was positioned in the beachchair position. All bony prominences were well-padded. Preoperative antibiotics were administered. The shoulder was prepped and draped in the usual sterile fashion. The correct patient, procedure, and side of the procedure were all verified prior to incision. Starting through the posterior portal a standard complete diagnostic arthroscopy was performed of the glenohumeral joint including inspection of the long head of the biceps, anterior and superior labrum, subscapularis tendon, supraspinatus and infraspinatus tendons, and axillary recess. The glenoid and humeral head cartilage as well as the posterior labrum were inspected from an anterior viewing portal. Significant findings and interventions noted above. Anterior portal and anterior superior lateral portal was established through the rotator cuff tear. The lesser tuberosity was prepared and debrided to optimize bone tendon healing. The subscapularis was freed up using hand and power instruments to mobilize the upper portion for repair. A suture tape FiberLink was shuttled around and through the intra-articular segment of the biceps tendon and a loop and tack fashion. It was retracted to the superior aspect of the bicipital groove, reducing it from medial to lateral position. The subscapularis could then be further inspected. It did have a chronic degenerated type appearance, but after it and mobilizing it from the capsule and had enough excursion and tissue quality for a limited repair. The self retrieving suture passer used to shuttle a FiberTape through the upper medial portion of the tendon corresponding to the planned site of repair. The undersized punch was used to localize placement of a suture anchor repair of the biceps and subscapularis off the prepared lesser tuberosity and set the biceps of rest at the superior aspect bicipital groove. The suture anchor was deployed with appropriate tension on the biceps tenderness and subscap repair with good fixation strength and appropriate tissue hold. Arm was checked into external rotation there was no limited motion or problems with repair. Still looking in the glenohumeral joint, the supraspinatus tear was localized from lateral subacromial with a needle inserted into the joint. Starting through the posterior portal, the arthroscope was directed into the subacromial space. A lateral 50 yard line lateral portal was created. A combination of power instruments and a radiofrequency ablator were used to debride bursitis anteriorly, posteriorly, and laterally as well as expose and smooth bone irregularity on the undersurface of the acromion. The coracoacromial ligament was preserved. The bursectomy was completed viewing laterally and working from posteriorly and the rotator cuff was thoroughly inspected with findings noted above. Working from laterally with the arm positioned targeting the known high?grade articular space tear, tissue elevators were used to elevate the supraspinatus preserving as much healthy tissue as possible. Greater tuberosity footprint thoroughly prepared while actually viewing from in the joint given the only small opening made bursal side. FiberTape's place at the appropriate medial anterior posterior margins again while viewing from in the joint. After switching back to the subacromial space and ripstop suture tape FiberLink placed centrally. Repair sutures combined with appropriate tension to his central lateral SwiveLock anchor. Safety stitch used with the self retrieving suture passer incorporating a wide close margin of infraspinatus given the infraspinatus degenerative changes on MRI that were interstitial/concealed with SMC knot secured over the infraspinatus to prevent propagation of tear posterior. The repair was inspected and probed and found to be stable and appropriate through range of motion. The shoulder was drained of arthroscopic fluid. All portal sites were copiously irrigated. These incisions were closed using 3-0 Monocryl in a buried fashion and then covered with Mastisol, Steri-Strips, Xeroform, dry gauze, and ABDs. The dressings were covered and secured with Medipore tape. The operative extremity was placed into a sling for immobilization. The patient awoke from anesthesia without complication and was transferred to the recovery room in a stable condition.
[2023-01-13] MEDS: Lactated Ringers 1,000 ML 30 ML IV (09:30)
[2023-01-13] MEDS: ceFAZolin 2 GM/50 ML BAG IVPB (10:41)
--- NOTE | 2023-01-13 10:41 | W.ANESNERVE ---
Nerve Block Single Injection Procedure Date and Time Date Performed: 01/13/23 Procedure Start: 10:32 Location Where Procedure Performed Procedure Location: Day Surgery Unit Reason Performed: Postoperative Analgesia Requesting Provider: Loi Soria Timeout Performed Timeout Performed: Yes Monitoring Used ECG, Blood Pressure and SpO2 Sterility Sterility: Hand Hygiene, Surgical Cap, Surgical Mask, Sterile Gloves and Chlorhexidine Sedation Given During Procedure Sedation Given (Indicate Dose Given): Versed IV Dose:: 1 mg Patient Mental Status Patient Mental Status: Awake Nerve Block 1st Nerve Block: Laterality: Right Block Type: Interscalene Ultrasound Image Saved?: Yes Needle / Catheter Used: 100mm SonoPlex II Local Anesthetic Bolus (Indicate Dose Given): Lidocaine used for local infiltration of skin, Bupivacaine 0.5% Dose:: 15 mL and Exparel Dose:: 10 mL Additives (Indicate Dose Given): None Ultrasound: Sterile probe cover and gel used Nerve Stimulator: Supplement to Ultrasound use and No twitch or parasthesia noted < 0.5 mA Paresthesia: None Procedure Tolerated: No Complications Procedure Outcome: Successful Performed By: Christofer Carcamo
--- NOTE | 2023-01-13 13:18 | W.ANESPOSTOP ---
Postoperative Evaluation Date, Time and Location Date Performed: 01/13/23 Time Performed: 13:18 Patient Location: PACU Vital Signs Most Recent Imported Vital Signs: Most Recent Vital Signs Temp Pulse Resp BP Pulse Ox 36.6 C 79 17 111/64 95 01/13/23 13:12 01/13/23 13:12 01/13/23 13:12 01/13/23 13:12 01/13/23 13:12 Pain Score Most Recent Pain Score: Most Recent Pain Score Pain Level 0 01/13/23 10:20 Assessment Mental Status: Awake (Alert & Oriented to Patient Baseline) Airway and Respiratory Function: Patent airway with normal (patient baseline) respiratory exam Cardiovascular Function: Hemodynamically Stable Hydration Status: Adequately Hydrated Nausea & Vomiting: No Nausea or Vomiting Pain: Pain is tolerable per patient Peripheral Nerve Block: Regional nerve block not resolved at time of post operative discharge
[2023-01-13] MEDS: EPINEPHrine 30 MG/30 ML VIAL (14:32)
== END 2023-01-13 15:04 | disposition home or self-care (01) ==
PROVIDERS: PCP Family Medicine; Visit Provider Student in an Organized Health Care Education/Training Program
PROC: (CPT 29827; principal; 2023-01-13 10:30)
DX: M75.101 Unspecified rotator cuff tear or rupture of right shoulder, not specified as traumatic (principal); M75.51 Bursitis of right shoulder; M75.21 Bicipital tendinitis, right shoulder; M94.211 Chondromalacia, right shoulder
CPT/HCPCS: 29827; 29828; 29826; 29823; 76942; J0690; J1100; J1885; J2250; J2405; J2704

== ENCOUNTER → 2023-01-26 10:15 | Outpatient (BNVA) | payer MEDICARE, SELFPAY | PROVIDERS: PCP Family Medicine; Referring Provider Family Medicine; Visit Provider Student in an Organized Health Care Education/Training Program | DX: Z47.89 Encounter for other orthopedic aftercare (principal); R60.0 Localized edema; M75.21 Bicipital tendinitis, right shoulder; M19.011 Primary osteoarthritis, right shoulder ==

== ENCOUNTER → 2023-03-16 08:06 | Outpatient (BNVA) | payer MEDICARE, SELFPAY | PROVIDERS: PCP Family Medicine; Referring Provider Family Medicine; Visit Provider Student in an Organized Health Care Education/Training Program | DX: Z47.89 Encounter for other orthopedic aftercare (principal); M75.101 Unspecified rotator cuff tear or rupture of right shoulder, not specified as traumatic ==

== ENCOUNTER → 2023-05-24 08:26 | Outpatient (BNVA) | payer MEDICARE, SELFPAY | PROVIDERS: PCP Family Medicine; Referring Provider Family Medicine; Visit Provider Student in an Organized Health Care Education/Training Program | DX: M75.101 Unspecified rotator cuff tear or rupture of right shoulder, not specified as traumatic (principal); M75.51 Bursitis of right shoulder; M75.21 Bicipital tendinitis, right shoulder | CPT/HCPCS: 99213 ==

== ENCOUNTER 2023-06-08 02:47 | Outpatient (CLI) | payer MEDICARE, SELFPAY ==
[2023-06-09 18:52] LABS: PSA, Ultrasensitive <0.01 ng/mL (<= 6.5)
== END 2023-06-08 02:48 | disposition home or self-care (01) ==
LOC: LOS 02:47
PROVIDERS: PCP Family Medicine; Visit Provider Family Medicine
DX: Z85.46 Personal history of malignant neoplasm of prostate (principal)
CPT/HCPCS: 36415; 84153

== ENCOUNTER 2023-09-14 03:09 | Outpatient (CLI) | payer MEDICARE, SELFPAY ==
[2023-09-14 12:53] LABS: Anion Gap 8.9 mmol/L (3-11); BUN 13 mg/dL (7-18); CO2 27.1 mmol/L (21.0-32.0); Calcium 9.5 mg/dL (8.5-10.1); Chloride 106 mmol/L (98-107); Estimated GFR 80.97 (mL/min/1.73m2); Glucose 109 mg/dL (74-106); Potassium 3.7 mmol/L (3.5-5.1); Sodium 142 mmol/L (136-145)
== END 2023-09-14 03:10 | disposition home or self-care (01) ==
LOC: LOS 03:09
PROVIDERS: PCP Family Medicine; Visit Provider Family Medicine
DX: I10 Essential (primary) hypertension (principal)
CPT/HCPCS: 36415; 80048

== ENCOUNTER → 2023-10-06 01:31 | Outpatient (CLI) | payer MEDICARE, SELFPAY ==
--- NOTE | 2023-10-06 08:25 | DI.CT_ITS ---
Exam(s) CT ABDOMEN PELVIS W EXAM: CT ABDOMEN PELVIS W CLINICAL HISTORY: back, abdominal, pelvic pain,r10.9. TECHNIQUE: Imaging Protocol: Axial computed tomography images with coronal and sagittal reformatted images were created and reviewed CONTRAST MATERIAL: Intravenous: Omnipaque 350 Contrast volume:100 ml Oral: yes / COMPARISON: CT CT CHEST/ABD/PEL WO from 02/16/2020 FINDINGS: ABDOMEN and PELVIS: Lung Bases: No acute findings. Stable tiny right lower lobe nodule. Liver: Mild hepatic steatosis. No measurable mass. Gallbladder and biliary tract: No radiodense calculus or dilation. Pancreas: Normal density. No abnormal calcifications or inflammatory process. No evidence of mass. Spleen: Normal. Kidneys: Normal size, contour and axis. No radiodense stones. No obstructive uropathy. No suspicious masses seen. Adrenal glands: No masses seen. Vasculature: Abdominal aorta non-dilated. Soft tissues: Unremarkable. Bladder: No gross wall thickening. No calculi.No focal mass. Bowel: No obstruction. No bowel wall thickening. Appendix normal.Mild diverticulosis. No evidence of diverticulitis. Normal quantity of stool. Peritoneal cavity: No ascites. No focal collection or mesenteric inflammatory response. Bones: Unremarkable for age. Reproductive organs: Post prostatectomy. Lymph nodes: Unremarkable. IMPRESSION:: Unremarkable CT scan of the abdomen and pelvis. RADIATION DOSE DELIVERED: Total DLP DATA REPOSITORY: All CT scans at this facility are submitted to the National Radiology Data Registry (NRDR) Dose Index Registry (DIR) with the [employer] (ACR). RADIATION OPTIMIZATION: All CT scans at this facility use at least one of these dose optimization te chniques: automated exposure control; mA and/or kV adjustment per patient size (includes targeted exa ms where dose is matched to clinical indication); or iterative reconstruction.
[2023-10-06] MEDS: Barium Sulfate 2% W/V-Berry Smoothie 450 ML BTL 900 ML PO (11:48)
[2023-10-06] MEDS: Normal Saline - Diluent 50 ML VIAL IJ (13:36)
[2023-10-06] MEDS: Omnipaque 350 MG/ML 500 ML BTL-Imaging package IJ (13:39)
== END ==
PROVIDERS: PCP Family Medicine; Visit Provider Physician Assistant
DX: R10.9 Unspecified abdominal pain (principal); R10.2 Pelvic and perineal pain; M54.9 Dorsalgia, unspecified
CPT/HCPCS: 74177

== ENCOUNTER 2023-10-06 15:12 | Outpatient (CLI) | payer MEDICARE, SELFPAY ==
[2023-10-06 13:54] LABS: Abs Immature Grans 0.01 10^3/uL (0.0-0.06); Absolute Basophil Count 0.04 10^3/uL (0.0-0.2); Absolute Eosinophil Count 0.26 10^3/uL (0.0-0.7); Absolute Lymphocyte Count 1.16 10^3/uL (1.2-3.4); Absolute Neutrophil Count 2.94 10^3/uL (1.2-6.7); Basophils % 0.8; Eosinophils % 5.5; HCT 42.6 % (40.0-50.0); HGB 14.8 g/dL (13.5-17.5); Immature Grans % 0.2; Lymphocytes % 24.6; MCH 31.6 pg (27.0-33.0); MCHC 34.7 % (32.0-36.0); MCV 91 fL (80-95); MPV 8.9 fL (8.0-11.0); Monocytes % 6.4; Neutrophils % 62.5; Platelet Count 191 10^3/uL (130-400); RBC 4.69 10^6/uL (4.36-5.78); RDW 12.6 % (11.8-14.1); RDW-SD 41.4 fL; WBC 4.71 10^3/uL (4.4-10.8)
[2023-10-06 14:33] LABS: ALT 38 U/L (16-63); AST 24 U/L (15-37); Albumin 3.8 g/dL (3.4-5.0); Alkaline Phosphatase 115 U/L (46-116); Anion Gap 6.1 mmol/L (3-11); BUN 14 mg/dL (7-18); Bilirubin, Total 0.4 mg/dL (0.2-1.0); CO2 28.9 mmol/L (21.0-32.0); Calcium 8.7 mg/dL (8.5-10.1); Chloride 101 mmol/L (98-107); Estimated GFR 80.97 (mL/min/1.73m2); Glucose 93 mg/dL (74-106); Potassium 3.8 mmol/L (3.5-5.1); Sodium 136 mmol/L (136-145)
== END 2023-10-06 15:13 | disposition home or self-care (01) ==
LOC: LBO 15:13
PROVIDERS: PCP Family Medicine; Visit Provider Physician Assistant
DX: R10.9 Unspecified abdominal pain (principal)
CPT/HCPCS: 36415; 80053; 85025; 87086

== ENCOUNTER → 2024-05-09 10:46 | Outpatient (BNVA) | payer MEDICARE, SELFPAY | PROVIDERS: PCP Family Medicine; Referring Provider Family Medicine; Visit Provider Nurse Practitioner Gerontology | DX: N50.811 Right testicular pain (principal) | CPT/HCPCS: 99213 ==

== ENCOUNTER → 2024-05-22 01:09 | Outpatient (CLI) | payer MEDICARE, SELFPAY ==
--- NOTE | 2024-05-22 07:00 | DI.US_ITS ---
Exam(s) US SCROTUM EXAM: US SCROTUM CLINICAL HISTORY: Right scrotum lump,rt testicular pain,n50.811. TECHNIQUE: Scrotal ultrasound performed using grayscale, color-flow and spectral Doppler analysis. COMPARISON: US US PROSTATE BIOPSY from 05/05/2020 US POCUS EXAM from 01/13/[address] ABDOMEN PELVIS W from 10/06/2023 FINDINGS: Right testicle: 3.7 x 2.6 x 4.1 cm Echogenicity: Normal. Contour: Smooth. Mass: None seen. Microlithiasis: None. Hydrocele: None. Variocele: None. There are a cluster of vessels adjacent to the testicle which correspond to the palp able abnormality. Echogenic foci are seen consistent with calcification within the vessels. These yuriy cified vessels can be seen on the CT scan of the abdomen and pelvis from 10/06/2023. Hernia: No peristalsing bowel loop identified. Epididymis: Normal. Left testicle: 4.6 x 2.2 x 3.7 cm Echogenicity: Normal. Contour: Smooth. Mass: None seen. Microlithiasis: None. Hydrocele: There is a small 2.7 x 1.2 x 2.4 cm left hydrocele. Variocele: None. Hernia: No peristalsing bowel loop identified. Epididymis: Normal. DOPPLER: Color: Symmetric and uniform, no hyperemia. IMPRESSION: 1. Normal appearing bilateral testicles. 2. The area of palpable concern corresponds to vessels adjacent to the testicle which show evidence o f atherosclerotic calcification. 3. No suspicious masses are seen. DATA REPOSITORY:
== END ==
PROVIDERS: PCP Family Medicine; Visit Provider Nurse Practitioner Gerontology
DX: N50.811 Right testicular pain (principal)
CPT/HCPCS: 76870

== ENCOUNTER 2024-09-13 01:54 | Outpatient (CLI) | payer MEDICARE, SELFPAY ==
[2024-09-13 12:50] LABS: Abs Immature Grans 0.01 10^3/uL (0.0-0.06); Absolute Basophil Count 0.05 10^3/uL (0.0-0.2); Absolute Eosinophil Count 0.23 10^3/uL (0.0-0.7); Absolute Lymphocyte Count 1.13 10^3/uL (1.2-3.4); Absolute Neutrophil Count 2.68 10^3/uL (1.2-6.7); Basophils % 1.1 %; Eosinophils % 5.2 %; HCT 41.8 % (40.0-50.0); HGB 14.7 g/dL (13.5-17.5); Immature Grans % 0.2 %; Lymphocytes % 25.7 %; MCH 32.6 pg (27.0-33.0); MCHC 35.2 % (32.0-36.0); MCV 93 fL (80-95); MPV 9.7 fL (8.0-11.0); Monocytes % 6.8 %; Platelet Count 190 10^3/uL (130-400); RBC 4.51 10^6/uL (4.36-5.78); RDW 12.3 % (11.8-14.1); RDW-SD 41.9 fL
[2024-09-13 13:38] LABS: ALT 37 U/L (16-63); AST 25 U/L (15-37); Albumin 4.3 g/dL (3.4-5.0); Alkaline Phosphatase 100 U/L (46-116); Anion Gap 10.1 mmol/L (3-11); BUN 14 mg/dL (7-18); Bilirubin, Total 0.81 mg/dL (0.2-1.0); CO2 26.9 mmol/L (21.0-32.0); Calcium 9.5 mg/dL (8.5-10.1); Chloride 103 mmol/L (98-107); Estimated GFR 80.47 (mL/min/1.73m2); Glucose 101 mg/dL (74-106); Potassium 4.3 mmol/L (3.5-5.1); Sodium 140 mmol/L (136-145); Total Protein 7.5 g/dL (6.4-8.2); Uric Acid 3.3 mg/dL (3.5-7.2)
[2024-09-17 13:38] LABS: PSA, Ultrasensitive <0.01 ng/mL (<= 6.5)
== END 2024-09-13 01:55 | disposition home or self-care (01) ==
LOC: LOS 01:55
PROVIDERS: PCP Family Medicine; Visit Provider Family Medicine
DX: I10 Essential (primary) hypertension (principal); C61 Malignant neoplasm of prostate; M1A.9XX0 Chronic gout, unspecified, without tophus (tophi); Z90.79 Acquired absence of other genital organ(s)
CPT/HCPCS: 36415; 80053; 84153; 84550; 85025

== ENCOUNTER 2024-12-19 14:52 | Outpatient (CLI) | payer MEDICARE, SELFPAY ==
--- NOTE | 2024-12-19 14:45 | DI.RAD_ITS ---
Exam(s) XR LUMBAR SPINE COMPLETE EXAM: XR LUMBAR SPINE COMPLETE CLINICAL HISTORY: eval pathology Low back pain M54.50. TECHNIQUE: 2D digital imaging was performed of the lumbar spine. Six images were obtained. AP, lat eral, right oblique, left oblique and L5-S1 spot views were obtained. COMPARISON: CR XR LUMBAR SPINE COMPLETE from 12/31/2020 FINDINGS: BONES: No fracture or destructive lesion. There are endplate osteophytes at several levels of the lum bar spine. No facet hypertrophy identified. DISKS: Intervertebral disc spaces are maintained. ALIGNMENT: Lumbar spinal alignment is within normal limits. No spondylolysis or spondylolisthesis. SOFT TISSUE: Atherosclerotic calcification of the abdominal aorta is noted. IMPRESSION: Mild degenerative changes in the lumbar spine. DATA REPOSITORY: RADIATION DOSE DELIVERED:
== END 2024-12-19 15:12 ==
PROVIDERS: PCP Family Medicine; Visit Provider Nurse Practitioner Family
DX: M51.360 Other intervertebral disc degeneration, lumbar region with discogenic back pain only (principal)
CPT/HCPCS: 72110

== ENCOUNTER 2025-05-15 01:31 | Outpatient (CLI) | payer MEDICARE, SELFPAY ==
--- NOTE | 2025-05-15 07:00 | DI.MRI_ITS ---
Exam(s) MR LUMBAR SPINE WO EXAM: MR LUMBAR SPINE WO CLINICAL HISTORY: chronic low back pain,M54.42. TECHNIQUE: Multiplanar multisequence MRI of the Lumbar spine was performed. COMPARISON: CR XR LUMBAR SPINE COMPLETE from 12/19/2024 FINDINGS: Bones: The last intervertebral disc space is designated the L5/S1 level for the numbering purpose of this examination. The vertebral body heights are well maintained. Alignment is satisfactory. There are mild degenerative endplate signal changes, particularly at L3-L4. There is disc desiccation from L1-2 through L5-S1. Cord: It is of normal size and signal intensity. T12-L1: No disc herniations or bulges are present. No central spinal canal or neural foraminal stenosis. L1-2: No disc herniations or bulges are present. No central spinal canal or neural foraminal stenosis. L2-3: No disc herniations or bulges are present. No central spinal canal or neural foraminal stenosis. L3-4: There is a diffuse disc bulge. There is a large left paracentral disc herniation with extrusion posterior to the L4 vertebral body. It measures 1.6 cm cranio caudally. There is left lateral recess stenosis with compression of the left L4 nerve. There is mild narrowing of the central spinal canal.There is also mild narrowing of the neural foramen bilaterally. L4-5: No disc herniations or bulges are present. No central spinal canal or neural foraminal stenosis. L5-S1: There is a mild diffuse disc bulge. There are mild degenerative changes of the facets. There is no significant central spinal canal stenosis. There is mild bilateral neural foraminal stenosis. Soft tissues: The visualized SI joints and sacrum are well maintained. The paraspinal soft tissues are unremarkable. IMPRESSION: 1. There is a large left L3-L4 paracentral disc herniation with extrusion posterior to L4. It causes left lateral recess stenosis and compresses the left L4 nerve root. 2. Degenerative changes are also seen at L3-4 with a diffuse disc bulge causing mild bilateral neural foraminal narrowing. 3. Degenerative changes at L5-S1 cause mild bilateral neural foraminal stenosis. DATA REPOSITORY:
== END 2025-05-15 01:51 ==
LOC: DI 01:31
PROVIDERS: PCP Family Medicine; Visit Provider Family Medicine
DX: M54.42 Lumbago with sciatica, left side (principal)
CPT/HCPCS: 72148

== ENCOUNTER 2025-06-12 13:32 | Outpatient (CLI) | payer MEDICARE, SELFPAY ==
--- NOTE | 2025-06-12 13:30 | RT.EKG_ITS ---
APPROVED REPORT Exam: Resting ECG Reason for Exam: Pre-op EKG Patient Location: O HR:62 bpm ECG Measurements Heart Rate 62 AXIS WA 144 P 23 QRSd 86 QRS 42 QT 399 T 36 QTc 406 Conclusion Sinus rhythm...normal P axis, V-rate 50- 99 early transition...QRS area>0 in V2 Otherwise normal ECG
== END 2025-06-12 13:33 | disposition home or self-care (01) ==
LOC: DI.CM 13:32
PROVIDERS: PCP Family Medicine; Visit Provider Nurse Practitioner Family
DX: Z01.818 Encounter for other preprocedural examination (principal)
CPT/HCPCS: 93010

== ENCOUNTER 2025-08-09 00:42 | Outpatient (CLI) | payer MEDICARE, SELFPAY ==
[2025-08-09 15:07] LABS: ALT 52 U/L (16-63); AST 31 U/L (15-37); Albumin 4.4 g/dL (3.4-5.0); Alkaline Phosphatase 126 U/L (46-116); Anion Gap 10.8 mmol/L (3-11); BUN 10 mg/dL (7-18); Bilirubin, Total 0.9 mg/dL (0.2-1.0); CO2 28.2 mmol/L (21.0-32.0); Calcium 9.3 mg/dL (8.5-10.1); Chloride 100 mmol/L (98-107); Estimated GFR 71.32 (mL/min/1.73m2); Glucose 102 mg/dL (74-106); Potassium 3.6 mmol/L (3.5-5.1); Sodium 139 mmol/L (136-145); Total Protein 7.8 g/dL (6.4-8.2); Uric Acid 4.1 mg/dL (3.5-7.2)
[2025-08-09 15:20] LABS: Calculated LDL 93 mg/dL (<100); Cholesterol 179 mg/dL (<200); HDL Cholesterol 57 mg/dL (>or=40); Triglyceride 148 mg/dL (<150)
== END 2025-08-09 00:43 | disposition home or self-care (01) ==
LOC: LOS 00:42
PROVIDERS: PCP Family Medicine; Visit Provider Family Medicine
DX: Z13.6 Encounter for screening for cardiovascular disorders (principal); E78.2 Mixed hyperlipidemia; I10 Essential (primary) hypertension; M1A.9XX0 Chronic gout, unspecified, without tophus (tophi); C61 Malignant neoplasm of prostate
CPT/HCPCS: 36415; 80053; 80061; 84153; 84550